=== PATIENT | male | born 1975 | race Caucasian/White ===

== ENCOUNTER 2016-07-24 13:18 | Inpatient (IN) | payer MEDICAID, OTHER ==
--- NOTE | 2016-07-24 14:15 | ED ---
Psych HPI - General Chief Complaint: Psychiatric Symptoms Stated Complaint: Mental Health Time Seen by Provider: 07/24/16 13:56 Source: patient Mode of arrival: ambulatory - History of Present Illness Initial Comments: Patient has a history of bipolar disease and major depression, he was diagnosed in a [facility] a few years ago, unfortunately never been treated after the period he got home with through a divorce him and his of 10 years been for about a month now and he is having a really hard time, there were children together. Now he is concerned about suicidal ideation crossing his mind he has a history of self-harm in the past and also worried about not trusting himself he said he could harm other people as well. Denies any medical complaints related systems negative otherwise - Related Data Home Medications Medication Instructions Recorded Confirmed HYDROcodone/APAP 10-325MG [[place] 1 tab PO TID PRN 07/24/16 07/24/16 10-325] Allergies Allergy/AdvReac Type Severity Reaction Status Date / Time tramadol AdvReac GETS ANGRY Verified 07/24/16 13:52 Review of Systems ROS Statement: Those systems with pertinent positive or pertinent negative responses have been documented in the HPI. ROS Other: All systems not noted in ROS Statement are negative. Past Medical History Additional Past Medical History / Comment(s): bipolar depression chronic back pain 2 herniated disks History of Any Multi-Drug Resistant Organisms: None Reported Past Surgical History: Orthopedic Surgery Additional Past Surgical History / Comment(s): shoulder knee Past Psychological History: Bipolar, Depression Smoking Status: Current every day smoker Past Alcohol Use History: Occasional Past Drug Use History: None Reported General Exam - General Exam Comments Initial Comments: General: The patient is awake and alert, in no distress, and does not appear acutely ill. Skin: Skin is warm and dry and no rashes or lesions are noted. Eye: Pupils are equal, round and reactive to light, extra-ocular movements are intact; there is normal conjunctiva bilaterally. Ears, nose, mouth and throat: There are moist mucous membranes and no oral lesions. Neck: The neck is supple, there is no tenderness or JVD. Cardiovascular: There is a regular rate and rhythm. No murmur, rub or gallop is appreciated. Respiratory: To auscultation bilateral, no wheezing no rhonchi no distress respiratory mendoza noticed Gastrointestinal: Soft, non-distended, non-tender abdomen without masses or organomegaly noted. There is no rebound or guarding present. Bowel sounds are unremarkable. Back: There is no tenderness to palpation in the midline. There is no obvious deformity. Musculoskeletal: Normal ROM, no tenderness, There is no pedal edema. There is no calf tenderness or swelling. No cords were appreciated. Neurological: CN II-XII intact, Cranial nerves III through XII are intact. There are no obvious motor or sensory deficits. Coordination appears grossly intact. Speech is normal. Psychiatric: Cooperative, seems depressed and admits to suicidal ideation and stated that he has been thinking about harming other people as well has a history of self-harm in the past. Limitations: no limitations Course Vital Signs 07/24/16 13:30 Temperature 98.2 F Pulse Rate 81 Respiratory 16 Rate Blood Pressure 140/87 O2 Sat by Pulse 97 Oximetry Discussed with the department of psychiatry recommended considering his past psych history in the past personal history and recent divorce my recommended that he BE admitted for inpatient eval and DayQuil Medical Decision Making - Lab Data Lab Results 07/24/16 Range/Units 14:11 Urine Opiates Screen Not Detected (NotDetected) Ur Oxycodone Screen Not Detected (NotDetected) Urine Methadone Screen Not Detected (NotDetected) Ur Propoxyphene Screen Not Detected (NotDetected) Ur Barbiturates Screen Not Detected (NotDetected) U Tricyclic Antidepress Not Detected (NotDetected) Ur Phencyclidine Scrn Not Detected (NotDetected) Ur Amphetamines Screen Not Detected (NotDetected) U Methamphetamines Scrn Not Detected (NotDetected) U Benzodiazepines Scrn Not Detected (NotDetected) Urine Cocaine Screen Not Detected (NotDetected) U Marijuana (THC) Screen Not Detected (NotDetected) Disposition Clinical Impression: Suicidal ideation, Major depression, Bipolar disorder Disposition: TRANSFER TO PSYCH HOSP/UNIT Condition: Good Referrals: Quentin Thakkar DO [Primary Care Provider] - 1-2 days
[2016-07-24] MEDS ORDERED: NICOTINE 21MG/24HR PATCH TRANSDERM STA (17:18)
[2016-07-24] MEDS ORDERED: MAG HYDROX/AL HYDROX/SIMETH 30 ML CUP PO PRN (18:23)
[2016-07-24] MEDS ORDERED: ZIPRASIDONE 20 MG VIAL IM PRN (18:23)
[2016-07-24] MEDS ORDERED: MAGNESIUM HYDROXIDE 2,400 MG/10 ML CUP PO PRN (18:23)
[2016-07-24] MEDS ORDERED: ACETAMINOPHEN TAB 325 MG TAB PO PRN (18:23)
[2016-07-24] MEDS ORDERED: LORazepam 1 MG TAB PO PRN (18:28)
[2016-07-24] MEDS ORDERED: LORazepam 2 MG/ML SYRINGE IM PRN (18:28)
[2016-07-24] MEDS: HYDROcodone/APAP 5-325MG 1 EACH TAB PO PRN (21:20)
[2016-07-25 09:25] LABS: Basophils # (A) 0.1 k/uL (0-0.2); Basophils % (A) 1 %; CH 32.5; CHCM 34.4; Eosinophils # (A) 0.2 k/uL (0-0.7); Eosinophils % (A) 2 %; HCT 47.1 % (39.0-53.0); HDW 2.38; HGB 15.9 gm/dL (13.0-17.5); Luc # (Auto) 0.22; Luc % (Auto) 2; Lymphocytes # (A) 3.9 k/uL (1.0-4.8); Lymphocytes % (A) 34 %; MCH 32.1 pg (25.0-35.0); MCHC 33.9 g/dL (31.0-37.0); MCV 94.8 fL (80.0-100.0); Monocytes # (A) 0.4 k/uL (0-1.0); Monocytes % (A) 3 %; Neutrophils # (A) 6.6 k/uL (1.3-7.7); Neutrophils % (A) 59 %; RBC 4.97 m/uL (4.30-5.90); RDW 12.7 % (11.5-15.5); WBC 11.3 k/uL (3.8-10.6); WBC (Perox) 11.35
[2016-07-25 09:29] LABS: ALT 33 U/L (21-72); AST 24 U/L (17-59); Alkaline Phosphatase 58 U/L (38-126); Anion Gap 11 mmol/L; Bilirubin, Delta 0.3 mg/dL (0.0-0.2); Blood Urea Nitrogen 13 mg/dL (9-20); Calcium 9.7 mg/dL (8.4-10.2); Carbon Dioxide 25 mmol/L (22-30); Chloride 104 mmol/L (98-107); Glucose 131 mg/dL (74-99); Non-African American GFR(MDRD) >60 (>60 ml/min/1.73 sqM); Potassium 4.1 mmol/L (3.5-5.1); Sodium 140 mmol/L (137-145); Total Bilirubin 1.1 mg/dL (0.2-1.3); Total Protein 7.6 g/dL (6.3-8.2)
[2016-07-25] MEDS: NICOTINE 21MG/24HR PATCH TRANSDERM SCH (09:39)
[2016-07-25] MEDS: HYDROcodone/APAP 5-325MG 1 EACH TAB PO PRN ×2 (09:40→16:37)
[2016-07-25 09:49] VITALS: BMI 40.8
[2016-07-25 10:10] LABS: Amorphous Sediment,Urine Many /hpf; Appearance,Urine Turbid (Clear); Bilirubin,Urine Negative (Negative); Glucose,Urine (UA) Negative (Negative); Ketones,Urine Negative (Negative); Leukocyte Esterase,Urine Negative (Negative); Mucus,Urine Occasional /hpf; Nitrite,Urine Negative (Negative); PH, Urine 5.5 (5.0-8.0); Particle Count 30918; Protein,Urine Negative (Negative); UA Billing (MACRO vs. MICRO) MICRO; Urobilinogen,Urine <2.0 mg/dL (<2.0)
[2016-07-25] MEDS ORDERED: ALBUTEROL INHALER 60 PUFF/8 GM INHALER INHALATION PRN (11:30)
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
[2016-07-26 06:44] VITALS: BP 107/57; PULSE 65; RESP 18; TEMP 97.7
[2016-07-26] MEDS: NICOTINE 21MG/24HR PATCH TRANSDERM SCH (09:30)
[2016-07-26] MEDS: HYDROcodone/APAP 5-325MG 1 EACH TAB PO PRN (09:31)
--- NOTE | 2016-07-26 13:56 | P.DS ---
Providers Date of admission: 07/24/16 17:57 Attending physician: Dominguez Buckley MD Consults: 07/24/16 18:23 Consult Physician Routine Consulting Provider: Leah May Consult Reason/Comments: H & P and medical care Do you want consulting provider notified?: Yes Primary care physician: Quentin Amin Bodega - Discharge Diagnosis(es) (1) Adjustment disorder with mixed disturbance of emotions and conduct Status: Resolved Priority: Medium (2) Suicidal ideation Status: Acute Priority: Medium Hospital Course: Mr. Knapp is a 40-year-old male who presented to the psychiatric unit voluntarily with complaints of depression and suicidal ideation. According to the EPS nurse he presented with complaints of having suicidal ideation and feeling depressed because he is from his . He has reportedly been sending pictures over the Internet to his depicting hanging and telling his he is "going to do it". According to the EPS nurse his is concerned over his alcohol use. He drinks "heavily" on a daily basis. He stated that he has not slept for more than "1 or 2 hours" over the last several weeks. "I had a good night sleep last night for the first time and feeling much better." He minimized his suicidal ideation and denied that he sent his pictures over the Internet depicting hanging. He denied that he communicated to his that he is "going to do it". He alleged that they've been for one month because they've been arguing frequently. He was evasive about the reasons for the medical discord. He talked about feeling jealous that his was taking care of her sister's 2 teenage children. He denied the use of alcohol and alleged that he has not drank in "several years". He denied feeling depressed or having thoughts of suicide. He denied symptoms of depression with the exception of insomnia. He denied feeling anxious or restless. He denied obsessions or compulsions. He denied psychotic symptoms such as auditory or visual hallucinations, thought insertion, thought broadcasting or thought control. He denied prior psychiatric hospitalizations. He received outpatient services through [facility] in "2006 or 2007" for depression after his [facility] from [facility]. He met with a counselor and the psychiatrist prescribed an antidepressant medication. He denied history of elevated mood or sustained irritability consistent with chalino or hypomania. He alleged that he has not used alcohol "several years ... I used to drink but I don't anymore. I saw what alcohol did to my brother. His liver and kidneys are failing because of the alcohol." He denied use of drugs to get high, help him sleep or change his mood. Specifically he denied use of marijuana, cocaine , crack cocaine, methamphetamine, heroin, or opioid pain medications (except for those prescribed by his physician), etc. His urine drug screen was negative for drugs of abuse and his BAT on presentation to the ER was 0 We admitted him to the psychiatric unit under the care of this field underwriter. We provided a biopsychosocial assessment. The environmental consultant solar sales specialist completed the initial history and physical exam. The environmental consultant diagnosed tobacco use and dependence, history of asthma or COPD, back pain due to herniated disks and obstructive sleep apnea compliant with CPAP. On the day following admission he denied feeling depressed or having thoughts of or suicide. He attributed his presentation to poor sleep and the separation from his . The social insurance adviser spoke with his sister who confirmed that he was not heavily using alcohol. He participated in therapeutic groups and activities. He had no signs and symptoms that would necessitate the prescription of psychotropic medication. He repeatedly denied suicidal ideation, plan or intent. He was receptive to a referral for individual counseling. Patient Condition at Discharge: Good Plan - Discharge Summary New Discharge Prescriptions: Nicotine 21Mg/24Hr Patch [Habitrol] 1 patch TRANSDERM DAILY #14 patch Discharge Medication List HYDROcodone/APAP 10-325MG [[place] 10-325] 1 tab PO TID PRN 07/24/16 [History] Albuterol Inhaler [Ventolin Hfa Inhaler] 2 puff INHALATION RT-QID PRN #0 puff [Rx] Nicotine 21Mg/24Hr Patch [Habitrol] 1 patch TRANSDERM DAILY #14 patch 07/26/16 [ Rx] Follow up Appointment(s)/Referral(s): [facility]Outside[facility] - 07/31/16 2:00 pm (Anitha Calvin) Quentin Thakkar, [Primary Care Provider] - 1-2 days Patient Instructions/Handouts: How to Stop Smoking (DC), Bipolar Disorder (DC) , Depression (DC), Suicide Prevention for Adults (DC) Activity/Diet/Wound Care/Special Instructions: No alcohol or street drugs. Notify the crisis line or your care provider if symptoms worsen. Crisis line no. . Regular diet. Activity as tolerated. Discharge Disposition: HOME SELF-CARE
== END 2016-07-26 13:30 | disposition home or self-care (01) | DRG 882 ==
LOC: EC 13:18 → 3MHU 17:57
PROVIDERS: ADMIT Psychiatry & Neurology Psychiatry; ATTEND Psychiatry & Neurology Psychiatry
DX: F43.25 Adjustment disorder with mixed disturbance of emotions and conduct (principal); R45.851 Suicidal ideations; J44.9 Chronic obstructive pulmonary disease, unspecified; G47.33 Obstructive sleep apnea (adult) (pediatric); J45.909 Unspecified asthma, uncomplicated; F17.200 Nicotine dependence, unspecified, uncomplicated; F31.9 Bipolar disorder, unspecified; G47.00 Insomnia, unspecified; Z91.5 Personal history of self-harm; Z88.5 Allergy status to narcotic agent; G89.29 Other chronic pain; M54.5 Low back pain; Z63.5 Disruption of family by separation and divorce; Z81.1 Family history of alcohol abuse and dependence
CPT/HCPCS: 80053; 80306; 81001; 82075; 82248; 84443; 85025; 94640; 99285

== ENCOUNTER 2016-08-08 17:27 | Inpatient (IN) | payer MEDICAID, OTHER ==
[2016-08-08] MEDS ORDERED: SODIUM CHLORIDE 0.9% 1,000 ML IV STA (17:43)
[2016-08-08] MEDS ORDERED: ACTIVATED CHARCOAL-SORBITOL 50 GM/240 ML BOTTLE PO STA (17:44)
--- NOTE | 2016-08-08 17:47 | ED ---
General Adult HPI - General Source: patient, family, RN notes reviewed Mode of arrival: ambulatory Limitations: no limitations <Salo Ortiz - Last Filed: 08/08/16 20:47> <Salo Bonner - Last Filed: 08/08/16 22:15> - General Chief complaint: Overdose Stated complaint: Overdose Time Seen by Provider: 08/08/16 17:35 - History of Present Illness Initial comments: This is a 40-year-old male who presents to the department with a past history of major depression. Patient has recently from his is become very depressed per patient was recently up in the psychiatric unit this month. Patient today became more depressed and decided he had nothing to live for so started taking a bunch of Flexeril he is not sure how many he took however the thinks he possibly took upwards of 20. Patient denies any other drug use patient denies taking any other medicines in excess. Patient denies any alcohol. Patient states he does believe he has nothing to live for because his left him and he is not able to live with her and his kids. Patient denies any physical complaints today. Patient denies headache patient denies numbness weakness. Patient denies any lightheadedness dizziness or near syncopal episode. Patient denies chest pain patient denies any palpitations difficulty breathing shortness of breath per patient denies abdominal pain patient denies nausea vomiting diarrhea. (Salo Ortiz) - Related Data Home Medications Medication Instructions Recorded Confirmed HYDROcodone/APAP 10-325MG [[place] 1 tab PO TID PRN 07/24/16 08/08/16 10-325] Previous Rx's Medication Instructions Recorded Albuterol Inhaler [Ventolin Hfa 2 puff INHALATION RT-QID PRN #0 07/26/16 Inhaler] puff Nicotine 21Mg/24Hr Patch [Habitrol] 1 patch TRANSDERM DAILY #14 patch 07/26/16 Allergies Allergy/AdvReac Type Severity Reaction Status Date / Time tramadol AdvReac GETS ANGRY Verified 08/08/16 18:36 Review of Systems ROS Other: All systems not noted in ROS Statement are negative. <Salo Ortiz - Last Filed: 08/08/16 20:47> ROS Other: All systems not noted in ROS Statement are negative. <Salo Bonner - Last Filed: 08/08/16 22:15> ROS Statement: Those systems with pertinent positive or pertinent negative responses have been documented in the HPI. Past Medical History Additional Past Medical History / Comment(s): chronic back pain with 2 herniated disks History of Any Multi-Drug Resistant Organisms: None Reported Past Surgical History: Orthopedic Surgery, Tonsillectomy Additional Past Surgical History / Comment(s): Right rotator cuff repair, left knee arthroscopy with ACL repair. Past Psychological History: Bipolar, Depression Smoking Status: Current every day smoker Past Alcohol Use History: Occasional Additional Past Alcohol Use History / Comment(s): Patient is a smoker of one and a half pack per day for 20 years. He denies any medical marijuana, marijuana, street drug or alcohol use. Past Drug Use History: None Reported - Past Family History Father Additional Family Medical History / Comment(s): Patient has had no contact with his father for 15 years. Mother Additional Family Medical History / Comment(s): Mother is alive at age 75 with dementia. Brother(s) Additional Family Medical History / Comment(s): Patient has 3 brothers and one has cirrhosis of the liver due to alcohol abuse. Patient has 1 sister with no major medical problems. Daughter(s) Additional Family Medical History / Comment(s): Patient has 2 sons and 2 daughters with no major medical problems. <Salo Ortiz - Last Filed: 08/08/16 20:47> General Exam Limitations: no limitations <Salo Ortiz - Last Filed: 08/08/16 20:47> General appearance: alert, in no apparent distress, in distress Head exam: Present: atraumatic, normocephalic, normal inspection Eye exam: Present: normal appearance, PERRL, EOMI. Absent: scleral icterus, conjunctival injection, periorbital swelling ENT exam: Present: normal exam, mucous membranes moist Neck exam: Present: normal inspection. Absent: tenderness, meningismus, lymphadenopathy Respiratory exam: Present: normal lung sounds bilaterally. Absent: respiratory distress, wheezes, rales, rhonchi, stridor Cardiovascular Exam: Present: regular rate, normal rhythm, normal heart sounds. Absent: systolic murmur, diastolic murmur, rubs, gallop, clicks GI/Abdominal exam: Present: soft, normal bowel sounds. Absent: distended, tenderness, guarding, rebound, rigid Extremities exam: Present: normal inspection, full ROM, normal capillary refill. Absent: tenderness, pedal edema, joint swelling, calf tenderness Back exam: Present: normal inspection Neurological exam: Present: alert, oriented X3, CN II-XII intact Psychiatric exam: Present: normal affect, normal mood Skin exam: Present: warm, dry, intact, normal color. Absent: rash <Salo Bonner - Last Filed: 08/08/16 22:15> - General Exam Comments Initial Comments: GENERAL: Patient is well-developed and well-nourished. Patient is nontoxic and well- hydrated and is in no acute distress. Patient is a little bit tired but is able to answer all questions accurately ENT: Neck is soft and supple. No significant lymphadenopathy is noted. Oropharynx is clear. Moist mucous membranes. Neck has full range of motion without eliciting any pain. EYES: The sclera were anicteric and conjunctiva were pink and moist. Extraocular movements were intact and pupils were equal round and reactive to light. Eyelids were unremarkable. PULMONARY: Unlabored respirations. Good breath sounds bilaterally. No audible rales rhonchi or wheezing was noted. CARDIOVASCULAR: There is a regular rate and rhythm without any murmurs gallops or rubs. ABDOMEN: Soft and nontender with normal bowel sounds. No palpable organomegaly was noted. There is no palpable pulsatile mass. SKIN: Skin is clear with no lesions or rashes and otherwise unremarkable. NEUROLOGIC: Patient is alert and oriented x3. Cranial nerves II through XII are grossly intact. Motor and sensory are also intact. Normal speech, volume and content. Symmetrical smile. MUSCULOSKELETAL: Normal extremities with adequate strength and full range of motion. No lower extremity swelling or edema. No calf tenderness. LYMPHATICS: No significant lymphadenopathy is noted PSYCHIATRIC: Normal psychiatric evaluation. Normal interpersonal interactions appears functionally intact in deals appropriately with others. No signs of depression. No signs of anxiety. (Salo Ortiz) Course <Salo Ortiz - Last Filed: 08/08/16 20:47> <Salo Bonner - Last Filed: 08/08/16 22:15> Vital Signs 08/08/16 08/08/16 08/08/16 17:36 18:32 18:41 Temperature 97.6 F Pulse Rate 86 Pulse Rate [ [facility] ] Respiratory 16 16 Rate Blood Pressure 147/81 O2 Sat by Pulse 99 Oximetry 08/08/16 08/08/16 20:45 21:47 Temperature 97.7 F 97.9 F Pulse Rate 68 71 Pulse Rate [ [facility] ] Respiratory 14 16 Rate Blood Pressure 120/71 117/69 O2 Sat by Pulse 98 95 Oximetry - Reevaluation(s) Reevaluation #1: 08/08/16 22:15 Medically clear for psychiatric evaluation (Salo Bonner) Medical Decision Making - Lab Data Result diagrams: 08/08/16 18:32 08/08/16 18:32 <Salo Ortiz - Last Filed: 08/08/16 20:47> - Lab Data Result diagrams: 08/08/16 18:32 08/08/16 18:32 <Salo Bonner - Last Filed: 08/08/16 22:15> - Medical Decision Making EKG shows normal sinus rhythm 70 bpm ME interval is 168 QRSs 80 QT interval 366 QTC is 395. Patient's EKG shows no ST segment elevation or depression or T wave abnormalities are noted Repeat EKG was done because the Flexeril overdose it showed a normal sinus rhythm at 60 bpm. It was 172 QRS is 82 QT interval 378 QTC is 41. Patient's EKG shows no ST segment elevation or depression or T-wave abdomen is noted. Dr. Bonner will be taking over the care of this patient at 9 PM (Salo Ortiz) [facility] ER for evaluation, patient was brought in for evaluation overdose, secondary to Flexeril, patient's awake and alert, vital signs are normal, patient remains suicidal and will be admitted for psychiatric evaluation and treatment (Salo Bonner) - Lab Data Lab Results 08/08/16 08/08/16 08/08/16 Range/Units 18:32 18:32 18:33 WBC 11.0 H (3.8-10.6) k/uL RBC 4.48 (4.30-5.90) m/uL Hgb 14.5 (13.0-17.5) gm/dL Hct 41.8 (39.0-53.0) % MCV 93.3 (80.0-100.0) fL MCH 32.4 (25.0-35.0) pg MCHC 34.7 (31.0-37.0) g/dL RDW 12.7 (11.5-15.5) % Plt Count 290 (150-450) k/uL Neutrophils % 56 % Lymphocytes % 35 % Monocytes % 5 % Eosinophils % 1 % Basophils % 1 % Neutrophils # 6.2 (1.3-7.7) k/uL Lymphocytes # 3.9 (1.0-4.8) k/uL Monocytes # 0.5 (0-1.0) k/uL Eosinophils # 0.2 (0-0.7) k/uL Basophils # 0.1 (0-0.2) k/uL Sodium 141 (137-145) mmol/L Potassium 4.0 (3.5-5.1) mmol/L Chloride 107 (98-107) mmol/L Carbon Dioxide 25 (22-30) mmol/L Anion Gap 9 mmol/L BUN 13 (9-20) mg/dL Creatinine 1.08 (0.66-1.25) mg/dL Est GFR (MDRD) Af Amer >60 (>60 ml/min/1.73 sqM) Est GFR (MDRD) Non-Af >60 (>60 ml/min/1.73 sqM) Glucose 102 H (74-99) mg/dL Calcium 9.1 (8.4-10.2) mg/dL Total Bilirubin 0.6 (0.2-1.3) mg/dL AST 21 (17-59) U/L ALT 44 (21-72) U/L Alkaline Phosphatase 47 (38-126) U/L Total Protein 6.7 (6.3-8.2) g/dL Albumin 3.9 (3.5-5.0) g/dL Salicylates <1.0 mg/dL Urine Opiates Screen Not Detected (NotDetected) Ur Oxycodone Screen Not Detected (NotDetected) Urine Methadone Screen Not Detected (NotDetected) Ur Propoxyphene Screen Not Detected (NotDetected) Acetaminophen <10.0 ug/mL Ur Barbiturates Screen Not Detected (NotDetected) U Tricyclic Antidepress Not Detected (NotDetected) Ur Phencyclidine Scrn Not Detected (NotDetected) Ur Amphetamines Screen Not Detected (NotDetected) U Methamphetamines Scrn Not Detected (NotDetected) U Benzodiazepines Scrn Not Detected (NotDetected) Urine Cocaine Screen Not Detected (NotDetected) U Marijuana (THC) Screen Not Detected (NotDetected) Serum Alcohol <10 mg/dL Disposition <Salo Ortiz - Last Filed: 08/08/16 20:47> <Salo Bonner - Last Filed: 08/08/16 22:15> Clinical Impression: Suicidal ideation, Major depression Disposition: TRANSFER TO PSYCH HOSP/UNIT Condition: Fair
[2016-08-08 18:48] LABS: Basophils # (A) 0.1 k/uL (0-0.2); Basophils % (A) 1 %; CH 32.6; Eosinophils # (A) 0.2 k/uL (0-0.7); Eosinophils % (A) 1 %; HCT 41.8 % (39.0-53.0); HDW 2.44; HGB 14.5 gm/dL (13.0-17.5); Luc # (Auto) 0.21; Luc % (Auto) 2; Lymphocytes # (A) 3.9 k/uL (1.0-4.8); Lymphocytes % (A) 35 %; MCH 32.4 pg (25.0-35.0); MCHC 34.7 g/dL (31.0-37.0); MCV 93.3 fL (80.0-100.0); Mean Platelet Volume 7.1; Monocytes # (A) 0.5 k/uL (0-1.0); Monocytes % (A) 5 %; Neutrophils # (A) 6.2 k/uL (1.3-7.7); Neutrophils % (A) 56 %; RBC 4.48 m/uL (4.30-5.90); RDW 12.7 % (11.5-15.5); WBC (Perox) 11.33
[2016-08-08 19:02] LABS: ALT 44 U/L (21-72); AST 21 U/L (17-59); Acetaminophen <10.0 ug/mL; Alcohol <10 mg/dL; Alkaline Phosphatase 47 U/L (38-126); Anion Gap 9 mmol/L; Blood Urea Nitrogen 13 mg/dL (9-20); Calcium 9.1 mg/dL (8.4-10.2); Carbon Dioxide 25 mmol/L (22-30); Chloride 107 mmol/L (98-107); Glucose 102 mg/dL (74-99); Non-African American GFR(MDRD) >60 (>60 ml/min/1.73 sqM); Salicylate <1.0 mg/dL; Sodium 141 mmol/L (137-145); Total Bilirubin 0.6 mg/dL (0.2-1.3); Total Protein 6.7 g/dL (6.3-8.2)
[2016-08-08] MEDS ORDERED: NICOTINE 21MG/24HR PATCH TRANSDERM STA (20:46)
[2016-08-08] MEDS ORDERED: MAG HYDROX/AL HYDROX/SIMETH 30 ML CUP PO PRN (22:49)
[2016-08-08] MEDS ORDERED: ZIPRASIDONE 20 MG VIAL IM PRN (22:49)
[2016-08-08] MEDS ORDERED: MAGNESIUM HYDROXIDE 2,400 MG/10 ML CUP PO PRN (22:49)
[2016-08-08] MEDS ORDERED: LORazepam 2 MG/ML SYRINGE IM PRN (22:53)
[2016-08-09] MEDS: ALBUTEROL INHALER 60 PUFF/8 GM INHALER INHALATION PRN ×4 (07:48→21:11)
[2016-08-09] MEDS: NICOTINE 21MG/24HR PATCH TRANSDERM SCH (08:38)
[2016-08-09] MEDS: ESCITALOPRAM 10 MG TAB PO SCH (09:43)
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
--- NOTE | 2016-08-09 14:48 | P.CONS ---
History of Present Illness - Reason for Consult Consult date: 08/09/16 medical management - History of Present Illness This is a 40-year-old male. His primary care physician is Dr. Thakkar. He gives history of asthma, COPD, chronic back pain with 2 herniated disc, obstructive sleep apnea with CPAP, bipolar, depression, tobacco use and dependence. Patient gives history that he split with his 1-1/2 months ago and was recently admitted to the mental health unit 2 weeks ago. He states he was discharged but did not go home on any new medications. He states he and his are trying to work things out and they are currently living together. [facility]. Patient states he took 20 Flexeril which was an old prescription of his for back pain and his came home and found him and she ended up bringing him into [facility] for evaluation. He states he has been out of it yesterday and today. Urine drug screen was negative. Salicylate level, acetaminophen and serum alcohol levels all negative. Patient has been admitted to the mental health unit. Review of Systems All systems: negative Constitutional: Denies chills, Denies fever Eyes: denies blurred vision, denies pain Ears, nose, mouth and throat: Denies headache, Denies sore throat Cardiovascular: Denies chest pain, Denies shortness of breath Respiratory: Denies cough Gastrointestinal: Denies abdominal pain, Denies diarrhea, Denies nausea, Denies vomiting Musculoskeletal: Denies myalgias Integumentary: Denies pruritus, Denies rash Neurological: Denies numbness, Denies weakness Psychiatric: Reports depression, Reports hopelessness, Reports suicidal ideation , Denies anxiety Endocrine: Denies fatigue, Denies weight change Past Medical History Additional Past Medical History / Comment(s): chronic back pain with 2 herniated disks History of Any Multi-Drug Resistant Organisms: None Reported Past Surgical History: Orthopedic Surgery, Tonsillectomy Additional Past Surgical History / Comment(s): Right rotator cuff repair, left knee arthroscopy with ACL repair. Past Psychological History: Bipolar, Depression Smoking Status: Current every day smoker Past Alcohol Use History: Occasional Additional Past Alcohol Use History / Comment(s): Patient is a smoker of one and a half pack per day for 20 years. He denies any medical marijuana, marijuana, street drug or alcohol use. Past Drug Use History: None Reported - Past Family History Father Additional Family Medical History / Comment(s): Patient has had no contact with his father for 15 years. Mother Additional Family Medical History / Comment(s): Mother is alive at age 75 with dementia. Brother(s) Additional Family Medical History / Comment(s): Patient has 3 brothers and one has cirrhosis of the liver due to alcohol abuse. Patient has 1 sister with no major medical problems. Daughter(s) Additional Family Medical History / Comment(s): Patient has 2 sons and 2 daughters with no major medical problems. Medications and Allergies Home Medications Medication Instructions Recorded Confirmed Type HYDROcodone/APAP 10-325MG [[place] 1 tab PO TID PRN 07/24/16 08/08/16 History 10-325] Allergies Allergy/AdvReac Type Severity Reaction Status Date / Time tramadol AdvReac GETS ANGRY Verified 08/08/16 18:36 Physical Exam Vitals: Vital Signs Temp Pulse Pulse Resp BP BP Pulse Ox 08/09/16 06:29 97.5 F L 69 20 136/77 08/08/16 22:27 98 F 71 18 118/84 08/08/16 22:23 97.5 F L 65 16 115/71 98 Intake and Output 08/08/16 08/09/16 08/09/16 22:59 06:59 14:59 Other: Weight 128.378 kg Gen: This is a morbidly obese 40-year-old male. He is cooperative and appears to be in no acute distress. HEENT: Head is atraumatic, normocephalic. Pupils equal, round. Sclerae is anicteric. NECK: Supple. No JVD. No lymphadenopathy. No thyromegaly. LUNGS: Clear to auscultation. No wheezes or rhonchi. No intercostal retractions. HEART: Regular rate and rhythm. No murmur. ABDOMEN: Soft. Bowel sounds are present. No masses. No tenderness. EXTREMITIES: No pedal edema. No calf tenderness. NEUROLOGICAL: Patient is awake, alert and oriented x3. Cranial nerves 2 through 12 are grossly intact. Results CBC & Chem 7: 08/08/16 18:32 08/08/16 18:32 Assessment and Plan Plan: 1. Depression. Patient admitted to the mental health unit. Continue current plan of care. 2. Tobacco use and dependence. Continue nicotine patch. 3. History of asthma or COPD per patient. Continue Ventolin inhaler as needed. 4. Chronic back pain with 2 herniated disc. Continue [place] as needed or Tylenol. 5. Obstructive sleep apnea compliant with CPAP. Impression and plan of care have been directed as dictated by the signing physician. Becky Arreola nurse practitioner acting as scribe for signing physician. Time with Patient: Greater than 30
[2016-08-09] MEDS: LORazepam 1 MG TAB PO PRN (22:37)
[2016-08-10] MEDS: ALBUTEROL INHALER 60 PUFF/8 GM INHALER INHALATION PRN ×3 (07:34→20:57)
[2016-08-10] MEDS: ESCITALOPRAM 10 MG TAB PO SCH (09:07)
[2016-08-10] MEDS: NICOTINE 21MG/24HR PATCH TRANSDERM SCH (09:07)
--- NOTE | 2016-08-10 13:46 | P.PN ---
Progress Note - Text SUBJECTIVE: I reviewed the medical record, interviewed Mr. Knapp and discuss his treatment and treatment plan during team meeting. He denied side effects to the initial doses of escitalopram. He requests to be discharged maintaining that he would "be safe" when he returns to her sister's home. Several times during interview he stated that he is to get back to work. He talked about the overdose of Flexeril as a "mistake". He alleged that he was "not thinking properly ... I have a lot to live for. Even if we get I still have my children to think of." We talked about the problems in his marriage and he attributed the marital problems to his focus on work over maintaining the relationship with his . He talked about working 16 hour days for "couple years". When he returned home he was "too tired" to spend time with his or his children. He is hoping to salvage the marriage but believes that he could accept a divorce. "I been before. I can do it again." He describes feeling depressed but denied thoughts of or suicide. OBJECTIVE: He presented as a casually groomed 40-year-old male who was pleasant on approach. He maintained eye contact and attended the interview. He had multiple monochromic tattoos on his arms but no prominent physical abnormalities. He had a depressed facial expression. He was alert and oriented to person, place and time. He showed slight psychomotor retardation but no abnormal involuntary movements. His rate was spontaneous with slight decrease in mood and volume. His affect was depressed and not reactive. He denied suicidal ideation or wishes. He denied homicidal ideation. He denied depressive cognitions such as hopelessness, helplessness and worthlessness. He didn't express obsessions, ruminations, phobias or ideas of reference. His thinking was abstract and associations were coherent and logical. He denied hallucinations did not appear to be responding to internal stimuli. He attended one therapeutic group yesterday. ASSESSMENT: He continues to have symptoms of depression but is denying suicidal ideation, plan or intent. Overall, he appears moderately mentally ill and minimally improve from admission. PLAN: Continue inpatient psychiatric hospitalization due to the severity of depression and readmission for depression with the suicide attempt. Continue escitalopram 20 mg daily and titrated according to clinical response and tolerance. Encourage participation in therapeutic groups and activities. Evaluate clinical status and response to treatment on a daily basis.
[2016-08-10] MEDS: ACETAMINOPHEN TAB 325 MG TAB PO PRN ×2 (16:58→21:10)
[2016-08-10] MEDS: LORazepam 1 MG TAB PO PRN (21:09)
[2016-08-11] MEDS: NICOTINE 21MG/24HR PATCH TRANSDERM SCH (08:29)
[2016-08-11] MEDS: ESCITALOPRAM 10 MG TAB PO SCH (08:30)
[2016-08-11] MEDS: ALBUTEROL INHALER 60 PUFF/8 GM INHALER INHALATION PRN ×4 (09:01→20:49)
[2016-08-11] MEDS: LORazepam 1 MG TAB PO PRN ×2 (14:56→23:00)
--- NOTE | 2016-08-11 16:10 | P.PN ---
Progress Note - Text SUBJECTIVE: I reviewed the medical record, interviewed Mr. Knapp and discussed his treatment and treatment plan during team meeting. He denied feeling depressed or having thoughts of or suicide. On a 10 point Likert scale he rated his depression as a "0". He plans to return to his sister's house and his will arrange visitation of the children at his sister's house. He does not want his involved in his treatment and declined my offer to have her involved in the family meeting. He described a laissez-faire attitude about marriage. He talked about being anxious about the upcoming child support hearing regarding the 14-year-old from his prior marriage. OBJECTIVE: He presented as a casually groomed 40-year-old male who was pleasant on approach. He maintained eye contact and attended the interview. He had a blunted facial expression. He was alert and oriented to person, place and time. He showed slight psychomotor retardation but no abnormal involuntary movements. His speech was spontaneous with normal rate, rhythm and volume. His affect was anxious and slightly depressed. He denied suicidal ideation or wishes. He denied homicidal ideation. He denied depressive cognitions such as hopelessness, helplessness and worthlessness. He didn't express obsessions, ruminations, phobias or ideas of reference. His thinking was abstract and associations were coherent and logical. He denied hallucinations did not appear to be responding to internal stimuli. He attended therapeutic groups. Therapist reported that he is attentive but does not contribute. ASSESSMENT: The patient is denying symptoms of depression or thoughts of or suicide. The overall change in his mood is dramatic and out of proportion to the usual response to antidepressant medications. I suspect that he is minimizing his distress. Overall, he appears moderately mentally ill and much improved from admission. PLAN: Continue inpatient psychiatric hospitalization due to the readmission for depression with the suicide attempt. Continue escitalopram 20 mg daily and titrated according to clinical response and tolerance. Encourage participation in therapeutic groups and activities. Evaluate clinical status and response to treatment on a daily basis.
[2016-08-12 06:47] VITALS: PULSE 70
[2016-08-12] MEDS: NICOTINE 21MG/24HR PATCH TRANSDERM SCH (08:38)
[2016-08-12] MEDS: ESCITALOPRAM 10 MG TAB PO SCH (08:39)
[2016-08-12] MEDS: LORazepam 1 MG TAB PO PRN ×2 (08:40→20:53)
[2016-08-12] MEDS: ALBUTEROL INHALER 60 PUFF/8 GM INHALER INHALATION PRN ×3 (09:16→21:45)
--- NOTE | 2016-08-12 17:39 | P.PN ---
Progress Note - Text SUBJECTIVE: I reviewed the medical record and interviewed Mr. Knapp. He denied feeling depressed or having thoughts of or suicide. He stated that he is less anxious, less distressed and does not perseverate about his marital problems as he did prior to admission He denied side effects to to Lexapro. He asked if he could be discharged tomorrow after family meeting. textile worker arranged a meeting with his sister. He again declined an offer to speak with his . OBJECTIVE: He presented as a casually groomed 40-year-old male who was pleasant on approach. He maintained eye contact and attended the interview. He had a blunted but bright facial expression. He was alert and oriented to person, place and time. He showed no abnormality of psychomotor activity and no abnormal involuntary movements. His speech was spontaneous with normal rate, rhythm and volume. His affect was blunted but bright. He denied suicidal ideation or wishes. He denied homicidal ideation. He denied depressive cognitions such as hopelessness, helplessness and worthlessness. He didn't express obsessions, ruminations, phobias or ideas of reference. His thinking was abstract and associations were coherent and logical. He denied hallucinations did not appear to be responding to internal stimuli. He attended one therapeutic groups today. ASSESSMENT: He appears moderately mentally ill and much improved from admission. PLAN: Continue inpatient psychiatric hospitalization. Continue escitalopram 20 mg daily and titrated according to clinical response and tolerance. Encourage participation in therapeutic groups and activities. Evaluate clinical status and response to treatment on a daily basis.
[2016-08-13 06:46] VITALS: BP 126/76; RESP 16; TEMP 97.7
[2016-08-13] MEDS: ESCITALOPRAM 10 MG TAB PO SCH (08:46)
[2016-08-13] MEDS: NICOTINE 21MG/24HR PATCH TRANSDERM SCH (08:46)
[2016-08-13] MEDS: LORazepam 1 MG TAB PO PRN (08:47)
[2016-08-13] MEDS: ALBUTEROL INHALER 60 PUFF/8 GM INHALER INHALATION PRN (10:51)
--- NOTE | 2016-08-13 11:55 | P.DS ---
Providers Date of admission: 08/08/16 22:11 Attending physician: Dominguez Buckley MD Consults: 08/08/16 22:49 Consult Physician Routine Consulting Provider: Dominguez Mckenzie Consult Reason/Comments: H and P, eval and tx, r/o metabolic disorder Do you want consulting provider notified?: Yes, Notify in am Primary care physician: Quentin Thakkar - Discharge Diagnosis(es) (1) Suicide attempt by drug ingestion Current Visit: Yes Status: Resolved Priority: High (2) Marital conflict involving estrangement Current Visit: Yes Status: Chronic Priority: High (3) Major depression Current Visit: Yes Status: Acute Priority: High Hospital Course: Mr. Knapp is a 40-year-old male readmitted to the [facility] Center following a suicide attempt by overdose of Flexeril. We discharge him from the unit on 07/26/2016 with diagnoses of adjustment disorder with disturbance of mood and conduct. He stated that he was depressed but only to leave the hospital and told us that he was doing better. He lived at his sister's home until 5 days prior to admission. He spent last 5 days with his and children. On the day he was to return back to his sister's home he took approximately 15 tablets of Flexeril with the thought that he would not wake up. He denied that he had planned the overdose and denied that he had thoughts of or suicide prior to the overdose. He impulsively took the medications giving little forethought to the consequences other than wanting to "sleep and not wake up." He kept his initial appointment at [facility]. He perseverated on his marital relationship. He stated several times during interview that they are but "working things out. .... We are going to have marital therapy." He completed the Huntley Depression Inventory. His total score was 29 consistent with moderate to severe symptoms of depression. He described constant sadness. He feels that he is a failure and finds little pleasure in things he used to enjoy. He feels guilty over his past behaviors. He has punishment feelings, self dislike, self criticalness and crying spells. He denied suicidal thoughts or wishes. At times he is restless or agitated that is hard to sit still. He described loss of energy and difficulty concentrating feeling fatigued and difficulty making decisions. He denied psychotic symptoms such as auditory or visual hallucinations, ideas reference, thought insertion, thought broadcasting or thought control. He feels anxious but denied symptoms suggestive of panic attacks. He denied periods of elevated mood or persistent irritability consistent with bipolar illness. He denied use of alcohol or drugs. His BAT on presentation to the ER was 0 and his urine drug screen was negative. He was admitted to this unit from 07/24 to 07/26/2016. He presented to the with complaints of depression and suicidal ideation related to separation from his . He [facility] "[facility]" for depression after his [facility] from [facility]. He met with a counselor and the psychiatrist prescribed an antidepressant medication. He denied history of elevated mood or sustained irritability consistent with chalino or hypomania. We admitted him to the psychiatric unit under the care of this blurb writer. We provided a biopsychosocial assessment. The senior billing consultant shirt operator completed the initial physical exam and medical history. The senior billing consultant diagnosed depression , tobacco use disorder, history of asthma or COPD, chronic back pain with 2 herniated disks and obstructive sleep apnea compliant with CPAP. We placed him on suicide precautions with 15 minute checks. We started Lexapro 10 mg by mouth for the treatment of depression. He participated intermittently in therapeutic groups and activities. He denied suicidal ideation or attempt on presentation to the unit. He regretted his action and attributed to concerns over his marriage is children and possibility of divorce. He acknowledged that his suicide attempt was related to staying with his and children over the extended weekend. He was not psychologically minded and was focused on work and child support throughout much of the hospital stay. He refused to have his involved in his treatment and refused us permission to contact his . The social professionals held the family meeting with his sister. He alleged that he spoke with his and both concur that he will remain his sister's home and his children will visit him at his sister's home. At the time of discharge she denied feeling depressed or having thoughts of or suicide. He is committed to outpatient treatment and [facility] Patient Condition at Discharge: Fair Plan - Discharge Summary New Discharge Prescriptions: Escitalopram [Lexapro] 10 mg PO DAILY 30 Days Discharge Medication List HYDROcodone/APAP 10-325MG [[place] 10-325] 1 tab PO TID PRN 07/24/16 [History] Albuterol Inhaler [Ventolin Hfa Inhaler] 2 puff INHALATION RT-QID PRN #0 puff [Rx] Nicotine 21Mg/24Hr Patch [Habitrol] 1 patch TRANSDERM DAILY #14 patch 07/26/16 [ Rx] Escitalopram [Lexapro] 10 mg PO DAILY 30 Days 08/13/16 [Rx] Follow up Appointment(s)/Referral(s): Quentin Thakkar DO [Primary Care Provider] - 1-2 days Discharge Disposition: HOME SELF-CARE
== END 2016-08-13 13:22 | disposition home or self-care (01) | DRG 885 ==
LOC: EC 17:27 → 3MHU 22:11
PROVIDERS: ADMIT Psychiatry & Neurology Psychiatry; ATTEND Psychiatry & Neurology Psychiatry
DX: F32.89 Other specified depressive episodes (principal); J44.9 Chronic obstructive pulmonary disease, unspecified; F17.200 Nicotine dependence, unspecified, uncomplicated; G47.33 Obstructive sleep apnea (adult) (pediatric); J45.909 Unspecified asthma, uncomplicated; T50.902A Poisoning by unspecified drugs, medicaments and biological substances, intentional self-harm, initial encounter; Z63.0 Problems in relationship with spouse or partner; Z63.8 Other specified problems related to primary support group; M54.89 Other dorsalgia; G89.29 Other chronic pain; Z81.1 Family history of alcohol abuse and dependence; Z88.5 Allergy status to narcotic agent; T48.1X2A Poisoning by skeletal muscle relaxants [neuromuscular blocking agents], intentional self-harm, initial encounter
CPT/HCPCS: 36415; 80053; 80306; 80320; 82075; 83520; 84443; 85025; 93005; 94640; 96360; 96361; 99285

== ENCOUNTER 2020-09-19 15:51 | Observation (INO) | payer OTHER ==
[2020-09-19 16:29] LABS: Basophils # (A) 0.1 k/uL (0-0.2); Basophils % (A) 1 %; Eosinophils # (A) 0.2 k/uL (0-0.7); Eosinophils % (A) 3 %; HCT 43.4 % (39.0-53.0); Lymphocytes # (A) 3.1 k/uL (1.0-4.8); Lymphocytes % (A) 33 %; MCHC 34.5 g/dL (31.0-37.0); MCV 92.6 fL (80.0-100.0); Mean Platelet Volume 6.4; Monocytes # (A) 0.4 k/uL (0-1.0); Monocytes % (A) 4 %; Neutrophils # (A) 5.3 k/uL (1.3-7.7); Neutrophils % (A) 57 %; Platelet Count 278 k/uL (150-450); RBC 4.69 m/uL (4.30-5.90); RDW 12.2 % (11.5-15.5); WBC 9.2 k/uL (3.8-10.6)
[2020-09-19 16:40] LABS: ALT 18 U/L (4-49); AST 21 U/L (17-59); African American GFR (CKD) >90 (>60 ml/min/1.73 sqM); Alkaline Phosphatase 50 U/L (38-126); Anion Gap 6 mmol/L; Blood Urea Nitrogen 10 mg/dL (9-20); Calcium 9.2 mg/dL (8.4-10.2); Carbon Dioxide 26 mmol/L (22-30); Chloride 107 mmol/L (98-107); Glucose 99 mg/dL (74-99); Magnesium 1.8 mg/dL (1.6-2.3); Non-African American GFR(CKD) 84 (>60 ml/min/1.73 sqM); Potassium 4.2 mmol/L (3.5-5.1); Sodium 139 mmol/L (137-145); Total Bilirubin 0.5 mg/dL (0.2-1.3); Total Protein 6.8 g/dL (6.3-8.2)
[2020-09-19 16:48] LABS: D-Dimer <0.17 mg/L FEU (<0.60); INR 0.9 (<1.2); Partial Thromboplastin Time 22.8 sec (22.0-30.0); Prothrombin Time 9.6 sec (9.0-12.0)
--- NOTE | 2020-09-19 16:50 | XR ---
EXAMINATION TYPE: XR chest 2V DATE OF EXAM: 09/19/2020 COMPARISON: None HISTORY: Syncope TECHNIQUE: Frontal and lateral views of the chest are obtained. FINDINGS: There is no focal air space opacity, pleural effusion, or pneumothorax seen. The cardiac silhouette size is within normal limits. The osseous structures are intact. IMPRESSION: No acute cardiopulmonary process.
--- NOTE | 2020-09-19 16:57 | ED ---
Chest Pain HPI - General Chief Complaint: Chest Pain Stated Complaint: chest pain/left arm numbness Time Seen by Provider: 09/19/20 15:55 Source: patient Mode of arrival: ambulatory Limitations: no limitations - History of Present Illness Initial Comments: Patient is a 44-year-old male who presents the emergency department with reported chest pain. Patient reports that he was sitting on the couch approximately 20 minutes ago when he had sudden onset of left-sided chest pain which went into his left arm. She attempted to get up from the couch when he had a syncopal episode and fell. Possibly hit his head on a side table. Episode was witnessed by the patient's . Patient awoke and continued to have chest pain and therefore was brought into the emergency room for evaluation. He states that he had a similar episode while at work with chest pain and syncope and was taken in the [facility] on . Patient received a cardiac workup and was discharged on Sunday after an echo. States he is supposed to follow-up in the outpatient setting for a stress test. Patient is alert family history of cardiac disease however denies any personal history. He was started on several medications that his discharge however he doesn't know what these were. Patient states his pain is active at this time, graded 8 out of 10. No associated shortness of breath. No ripping or tearing sensation to his back. No associated nausea, vomiting or diaphoresis. Patient tested positive for Covid at [facility] however he denies any symptoms of shortness of breath, fevers or fatigue. No sick contacts with similar symptoms. Other alleviating, precipitating or modifying factors - Related Data Home Medications Medication Instructions Recorded Confirmed Ibuprofen [Motrin Ib] 600 mg PO Q8H PRN 09/19/20 09/19/20 Allergies Allergy/AdvReac Type Severity Reaction Status Date / Time tramadol AdvReac GETS ANGRY Verified 09/19/20 17:53 Review of Systems ROS Statement: Those systems with pertinent positive or pertinent negative responses have been documented in the HPI. ROS Other: All systems not noted in ROS Statement are negative. EKG Findings - EKG Comments: EKG Findings:: EKG demonstrates sinus rhythm with a ventricular rate of 61. WA interval 160. QRS 84. QTC 374. No acute ST segment elevations or depressions Past Medical History Additional Past Medical History / Comment(s): chronic back pain with 2 herniated disks History of Any Multi-Drug Resistant Organisms: None Reported Past Surgical History: Orthopedic Surgery, Tonsillectomy Additional Past Surgical History / Comment(s): Right rotator cuff repair, left knee arthroscopy with ACL repair. Past Psychological History: Bipolar, Depression Smoking Status: Current every day smoker Past Alcohol Use History: Occasional Past Drug Use History: None Reported - Past Family History Father Additional Family Medical History / Comment(s): Patient has had no contact with his father for 15 years. Mother Additional Family Medical History / Comment(s): Mother is alive at age 75 with dementia. Brother(s) Additional Family Medical History / Comment(s): Patient has 3 brothers and one has cirrhosis of the liver due to alcohol abuse. Patient has 1 sister with no major medical problems. Daughter(s) Additional Family Medical History / Comment(s): Patient has 2 sons and 2 daughters with no major medical problems. General Exam Limitations: no limitations Course Vital Signs 09/19/20 09/19/20 09/19/20 15:53 17:57 18:55 Temperature 98.1 F Pulse Rate 71 55 L Pulse Rate [ Pulse Oximetery ] Respiratory 18 18 18 Rate Blood Pressure 157/81 153/88 Blood Pressure [Left Arm] O2 Sat by Pulse 100 100 Oximetry 09/19/20 19:56 Temperature 97.9 F Pulse Rate Pulse Rate [ 58 L Pulse Oximetery ] Respiratory 16 Rate Blood Pressure Blood Pressure 154/95 [Left Arm] O2 Sat by Pulse 100 Oximetry Chest Pain MDM - MDM Upon arrival. He was placed into room 10. There history of physical exam is performed. IV was established. Laboratory studies were conducted. Patient went for chest x-ray. Laboratory studies are reviewed and troponin is negative. CT of the brain was performed as the patient reports syncope with head trauma which demonstrates no acute fracture in the cervical spine. No acute intracranial hemorrhage. Chest x-ray fails to demonstrate any acute cardiopulmonary process. Results are discussed the patient. He is given an aspirin and 4 mg of morphine. He does have some resolution in his pain. I did recommend hospital admission for cardiology evaluation. Patient agreed to this. Spoke with Dr. Benito who agreed to admit the patient. Patient is awaiting a bed on the floor Disposition Clinical Impression: Chest pain, Syncope and collapse, Head injury Disposition: ADMITTED IP TO THIS HOSP Condition: Stable Is patient prescribed a controlled substance at d/c from ED?: No Decision to Admit Reason: Admit from EC Decision Date: 09/19/20 Decision Time: 18:50
--- NOTE | 2020-09-19 17:56 | CT ---
EXAMINATION TYPE: CT brain arbenine wo con DATE OF EXAM: 09/19/2020 COMPARISON: None HISTORY: Syncope. CT DLP: 1966.9 mGycm Automated exposure control for dose reduction was used. TECHNIQUE: CT scan of the head and cervical spine are performed without contrast. FINDINGS: There is no acute intracranial hemorrhage, mass effect, or midline shift identified. The ventricles and sulci are within normal limits in size. The globes are intact. There are mucous rete ntion cysts or polyps in the right maxillary sinus. Cervical spine is visualized in its entirety from C1 through upper thoracic levels and demonstrates s atisfactory alignment without evidence of acute fracture or dislocation. Prevertebral soft tissue ap pears within normal limits. The C1-C2 articulation is unremarkable. There is mild degenerative disc disease in the mid lower cervical spine with mild spondylosis and disc space narrowing. IMPRESSION: 1. There is no acute fracture or dislocation evident in the cervical spine. Mild degenerative disc di sease. 2. No acute intracranial hemorrhage, mass effect, or midline shift is seen. Chronic sinusitis in the right maxillary sinus.3.
[2020-09-19] MEDS ORDERED: NALOXONE 0.4 MG/ML 1 ML VIAL IV PRN (18:51)
[2020-09-19] MEDS ORDERED: NICOTINE 21MG/24HR PATCH TRANSDERM STA (18:56)
[2020-09-19] MEDS ORDERED: ASPIRIN 325 MG TAB PO STA (19:01)
[2020-09-19] MEDS: MORPHINE SULFATE 4 MG/ML SYRINGE IVP PRN (21:42)
[2020-09-20] MEDS: MORPHINE SULFATE 4 MG/ML SYRINGE IVP PRN (02:48)
[2020-09-20 07:56] VITALS: RESP 18; TEMP 97.6
[2020-09-20] MEDS ORDERED: ONDANSETRON 4 MG/2 ML VIAL IVP PRN (08:19)
[2020-09-20] MEDS ORDERED: DOBUTamine DRIP for NUC MED 500 MG in DEXTROSE/WATER 1 250ML.BAG IV PRN (08:24)
[2020-09-20 09:00] VITALS: BP 131/85
[2020-09-20 09:04] VITALS: PULSE 64
[2020-09-20 09:07] LABS: Basophils # (A) 0.07 X 10*3/uL (0.00-0.10); Basophils % (A) 0.7 %; Eosinophils # (A) 0.26 X 10*3/uL (0.04-0.35); Eosinophils % (A) 2.5 %; HCT 39.7 % (39.6-50.0); HGB 13.4 g/dL (13.0-17.0); Lymphocytes # (A) 3.68 X 10*3/uL (0.90-5.00); Lymphocytes % (A) 35.1 %; MCH 32.1 pg (27.0-32.0); MCHC 33.8 g/dL (32.0-37.0); Mean Platelet Volume 9.2 fL (9.5-12.2); Monocytes # (A) 0.56 X 10*3/uL (0.20-1.00); Monocytes % (A) 5.3 %; Neutrophils # (A) 5.87 X 10*3/uL (1.80-7.70); Platelet Count 251 X 10*3/uL (140-440); RBC 4.18 X 10*6/uL (4.40-5.60); RDW 12.5 % (11.5-14.5); WBC 10.48 X 10*3/uL (4.50-10.00)
[2020-09-20 09:20] LABS: African American GFR (CKD) 94.8 (60.0-200.0); Anion Gap 5.5 mmol/L (4.00-12.00); BUN/Creat Ratio 10.91 Ratio (12.00-20.00); Calcium 8.4 mg/dL (8.7-10.3); Carbon Dioxide 27.5 mmol/L (21.6-31.8); Non-African American GFR(CKD) 81.8 (60.0-200.0); Potassium 4.1 mmol/L (3.5-5.5)
--- NOTE | 2020-09-20 09:22 | P.CRDCN ---
History of Present Illness Consult date: 09/20/20 History of present illness: HISTORY OF PRESENT ILLNESS: This is a 44-year-old male with a past medical history significant for asthma and nicotine dependence. We have been asked to see the patient in consultation for chest pain and syncope. Patient examined at the bedside. Patient reports he began having chest pain on while at work. EMS was called and the patient was taken to [facility]. Patient was evaluated by Dr. Rush. Patient had an echocardiogram done which he states was normal to his knowledge. An outpatient stress test was recommended. Patient reports he was having some dizziness and lightheadedness over the weekend. He states on Sunday he was sitting on his couch and he began having chest pain. He states the pain was in the middle of his chest and under his left breast. He reports the pain radiated to his left arm and jaw. He states he stood up from the couch and he then passed out. His was there at the time. He does not know how long he was out for. He denies loss of bowel or bladder. He denies biting his tongue. Patient states she is still having a small amount of chest discomfort this morning. He states it is worse with deep inspiration. He denies any tenderness to palpation. Patient reports he is smoker and smokes approximately one pack per day. Patient states his mom had a history of congestive heart failure. He reports his dad had a history of heart attacks which she thinks were after the age of 60. EKG reveals sinus mechanism with no signs of acute ischemia Chest xray no acute cardiopulmonary process Laboratory data: WBC 10.4. Hemoglobin 13.4. Platelet count 251. D-dimer 0.17. Sodium 139. Potassium 4.2. BUN 10. Creatinine 1.08. Troponin negative 3. Current home cardiac medications include none REVIEW OF SYSTEMS: At the time of my exam: CONSTITUTIONAL: Denies fever or chills. HEENT: Denies blurred vision, vision changes, or eye pain. Denies hemoptysis CARDIOVASCULAR: Reports mild chest pain; worse with deep inspiration. Denies orthopnea. Denies PND. Denies palpitations RESPIRATORY: Denies shortness of breath. GASTROINTESTINAL: Denies abdominal pain. Denies nausea or vomiting. HEMATOLOGIC: Denies bleeding disorders. GENITOURINARY: Denies any blood in urine. SKIN: Denies pruitis. Denies rash. PHYSICAL EXAM: VITAL SIGNS: Reviewed. GENERAL: Well-developed in no acute distress. HEENT: Head is normocephalic. Pupils are equal, round. Sclerae anicteric. Mucous membranes of the mouth are moist. Neck supple. No JVD or thyromegaly LUNGS: Respirations even and unlabored. Lungs with expiratory wheezing in all lung bond. HEART: Regular rate and rhythm. S1 and S2 heard. ABDOMEN: Soft. Nondistended. Nontender. EXTREMITIES: Normal range of motion. No clubbing or cyanosis. Peripheral pulses intact. No lower extremity edema NEUROLOGIC: Awake and alert. Oriented x 3. ASSESSMENT: Syncope Chest pain, troponins negative 3 Asthma Nicotine dependence Obesity BMI 36.7 PLAN: An acute coronary event has been ruled out Obtain echocardiogram recently completed at [facility] Check orthostatic blood pressures Patient to undergo dobutamine stress test today Smoking cessation recommended Further recommendations pending patient course Nurse practitioner note has been reviewed by physician. Signing provider agrees with the documented findings, assessment, and plan of care. Past Medical History Additional Past Medical History / Comment(s): chronic back pain with 2 herniated disks History of Any Multi-Drug Resistant Organisms: None Reported Past Surgical History: Orthopedic Surgery, Tonsillectomy Additional Past Surgical History / Comment(s): Right rotator cuff repair, left knee arthroscopy with ACL repair. Past Anesthesia/Blood Transfusion Reactions: No Reported Reaction Past Psychological History: Bipolar, Depression Smoking Status: Current every day smoker Past Alcohol Use History: Occasional Past Drug Use History: None Reported - Past Family History Father Additional Family Medical History / Comment(s): Patient has had no contact with his father for 15 years. Mother Additional Family Medical History / Comment(s): Mother is alive at age 75 with dementia. Brother(s) Additional Family Medical History / Comment(s): Patient has 3 brothers and one has cirrhosis of the liver due to alcohol abuse. Patient has 1 sister with no major medical problems. Daughter(s) Additional Family Medical History / Comment(s): Patient has 2 sons and 2 daughters with no major medical problems. Medications and Allergies Home Medications Medication Instructions Recorded Confirmed Type Ibuprofen [Motrin Ib] 600 mg PO Q8H PRN 09/19/20 09/19/20 History Allergies Allergy/AdvReac Type Severity Reaction Status Date / Time tramadol AdvReac GETS ANGRY Verified 09/19/20 17:53 Physical Exam Vitals: Vital Signs Temp Pulse Pulse Pulse Pulse Pulse Resp 09/20/20 08:58 63 65 54 L 09/20/20 08:00 63 65 54 L 64 18 09/20/20 07:00 97.6 F 64 18 09/20/20 02:00 58 L 16 09/20/20 01:35 98.2 F 60 16 09/19/20 20:00 58 L 16 09/19/20 19:56 97.9 F 58 L 16 09/19/20 18:55 55 L 18 09/19/20 17:57 18 09/19/20 15:53 98.1 F 71 18 BP BP BP BP BP Pulse Ox 09/20/20 08:58 140/86 141/87 131/85 09/20/20 08:00 09/20/20 07:00 127/84 97 09/20/20 02:00 09/20/20 01:35 127/76 98 09/19/20 20:00 09/19/20 19:56 154/95 100 09/19/20 18:55 153/88 100 09/19/20 17:57 09/19/20 15:53 157/81 100 Intake and Output 09/19/20 09/20/20 09/20/20 22:59 06:59 14:59 Other: Voiding Method Toilet Toilet Toilet # Voids 1 3 Weight 116.12 kg Results 09/20/20 05:04 09/19/20 16:19 Cardiac Enzymes 09/19/20 09/19/20 09/19/20 Range/Units 16:19 16:19 19:26 AST 21 (17-59) U/L Troponin I <0.012 <0.012 (0.000-0.034) ng/mL 09/19/20 Range/Units 23:08 AST (17-59) U/L Troponin I <0.012 (0.000-0.034) ng/mL Coagulation 09/19/20 Range/Units 16:19 PT 9.6 (9.0-12.0) sec APTT 22.8 (22.0-30.0) sec CBC 09/19/20 09/20/20 Range/Units 16:19 05:04 WBC 9.2 10.48 H (3.8-10.6) k/uL RBC 4.69 4.18 L (4.30-5.90) m/uL Hgb 15.0 13.4 (13.0-17.5) gm/dL Hct 43.4 39.7 (39.0-53.0) % Plt Count 278 251 (150-450) k/uL Comprehensive Metabolic Panel 09/19/20 Range/Units 16:19 Sodium 139 (137-145) mmol/L Potassium 4.2 (3.5-5.1) mmol/L Chloride 107 (98-107) mmol/L Carbon Dioxide 26 (22-30) mmol/L BUN 10 (9-20) mg/dL Creatinine 1.08 (0.66-1.25) mg/dL Glucose 99 (74-99) mg/dL Calcium 9.2 (8.4-10.2) mg/dL AST 21 (17-59) U/L ALT 18 (4-49) U/L Alkaline Phosphatase 50 (38-126) U/L Total Protein 6.8 (6.3-8.2) g/dL Albumin 4.0 (3.5-5.0) g/dL Current Medications Generic Name Dose Route Start Last Admin Trade Name Freq PRN Reason Stop Dose Admin Dobutamine HCl/Dextrose 500 mg 250 mls @ 34.836 mls/hr 09/20/20 08:24 / IV Solution IV 09/20/20 12:25 .Q7H11M PRN Per Protocol Protocol 10 MCG/KG/MIN Morphine Sulfate 4 mg 09/19/20 19:28 09/20/20 02:48 Morphine Sulfate 4 Mg/Ml Syringe IVP 4 mg Q4HR PRN Administration Pain Naloxone HCl 0.2 mg 09/19/20 18:51 Naloxone 0.4 Mg/Ml 1 Ml Vial IV Q2M PRN Opioid Reversal Ondansetron HCl 4 mg 09/20/20 08:19 09/20/20 08:33 Ondansetron 4 Mg/2 Ml Vial IVP 4 mg Q6HR PRN Administration Nausea And Vomiting Intake and Output 09/19/20 09/20/20 09/20/20 22:59 06:59 14:59 Other: Voiding Method Toilet Toilet Toilet # Voids 1 3 Weight 116.12 kg 09/20/20 05:04 09/19/20 16:19
--- NOTE | 2020-09-20 11:44 | P.STRESS ---
- Stress Test Note Stress Test Results/Findings: Exam Performed: Exam Date: Reason for Exam: Height: 5 ft 10 in Weight: 116.12 kg Protocol: Stage: Duration of Exercise: Resting Heart Rate: Resting Blood Pressure: Maximum Achieved Heart Rate: Maximum Achieved Blood Pressure: 85% PMHR: 100% PMHR: METS: Technologist Comment: Stress Test Results/Findings: This is a 44-year-old gentleman with history of of smoking, COPD, was admitted to the hospital with complaints of shortness of breath. Patient also had asthma. Stress data: Baseline blood pressure is 152/53 with a pulse rate of 64. Baseline EKG showed sinus rhythm with normal AK interval and QRS duration. Blood pressure at rest is 150/53 with pulse rate of 64. A standard dose of dobutamine was initiated 10 mics and titrated to 30 mics achieving a maximal heart rate of 151 with blood pressure 164/ 68. EKGs taken during and after exercise did not reveal any significant changes from the baseline. Patient did not express any chest pain. Echo data: Baseline echo images showed normal wall motion and thickening. Exercise echo images with the dobutamine at low dose and high dose, showed augmentation of wall motion and thickening in all the segments. Final impression: #1. Negative dobutamine stress test #2. Negative dobutamine stress echo.
--- NOTE | 2020-09-20 13:38 | HP ---
HISTORY AND PHYSICAL This is a combined history and physical and discharge summary. CHIEF COMPLAINT: Chest pain, syncope. HISTORY OF PRESENT ILLNESS: This 44-year-old gentleman with a past medical history of multiple medical problems including history of DJD, history of bipolar, depression, history of nicotine dependence, being followed by Dr. Elda Hay and as well as Dr. Bibi Dolan in the outpatient setting is admitted with chest pain. The patient apparently was recently evaluated in [facility]. The pain was in the left-side of the chest pain which was radiating to the left arm and the patient also had an episode of syncope which was witnessed by his . The patient was taken to [facility] and admitted for further evaluation. Initial labs are within normal limits. Cardiology performed a stress test which was reported to be within normal limits. Cardiology cleared the patient for discharge. There was no history of fever, rigors. No history of cough, sputum production, hematochezia, melena. X-rays of the spine, x- rays of the chest and CT scan of the brain is also within normal limits. D- dimer is also negative. EKG showed only low voltage complexes. PAST MEDICAL HISTORY: History of chronic back pain, DJD, history of tonsillectomy, bipolar depression, DJD. MEDICATIONS: Medication prior to admission, home medications are ibuprofen 600 mg q.8 p.r.n. ALLERGIES: ULTRAM. FAMILY HISTORY: No contact with father for 15 years. SOCIAL HISTORY: History of smoking. No history of alcohol. No history of substance abuse. REVIEW OF SYSTEMS: ENT: As mentioned earlier. CARDIOVASCULAR SYSTEM: As mentioned earlier. RESPIRATORY SYSTEM: As mentioned earlier. GI: No nausea. : No dysuria. NERVOUS SYSTEM: No numbness or weakness. ALLERGY/IMMUNOLOGY: As mentioned earlier. HEMATOLOGY: No history of anemia. MUSCULOSKELETAL: As mentioned earlier. CONSTITUTIONAL: As mentioned earlier. PSYCHIATRY: As mentioned earlier. PHYSICAL EXAMINATION: The patient is alert and oriented x3. Pulse 54, blood pressure 140/86, respiration 18, temperature 97.6, pulse ox 97% on room air. HEENT: Conjunctivae normal. Oral mucosa moist. NECK: No jugular venous distention. No thyroid enlargement. No carotid bruit. CARDIOVASCULAR: S1, S2 muffled. No S3, no S4. RESPIRATORY: Breath sounds diminished at the bases. No rhonchi. No crackles. ABDOMEN: Soft, nontender. No mass palpable. LEGS: No edema. No swelling. NERVOUS SYSTEM: Higher function as mentioned earlier. Moves all 4 limbs. No focal motor or sensory deficit. LYMPHATICS: No lymphadenopathy of the neck, axillae or groin. SKIN: No ulcer, rash or bleeding. JOINTS: No active deforming arthropathy. LABS: WBC 10.4, hemoglobin 13.4, sodium 140, potassium 4.1. ASSESSMENT: 1. Chest pain possibly musculoskeletal, negative stress test. 2. History of syncope, possibly vasovagal. 3. History of chronic back pain with herniated discs. 4. History of bipolar. 5. History of depression. 6. History of nicotine dependence. 7. Obesity with body mass index of 36.7. RECOMMENDATIONS AND DISCUSSION: This 44-year-old gentleman who presented will monitor the patient closely. Continue the current medications. Continue symptomatic treatment. Stress test was negative. The patient is feeling better. The basic labs are negative as mentioned earlier. I would recommend the patient to be discharged and follow up closely with Elda Hay as well as Cardiology also. DISCHARGE ADVICE: 1. Medications are Motrin p.r.n. as before. 2. Follow up with Cardiology as recommended. 3. Follow up with Elda Hay and Dr. Bibi Dolan as recommended. MMODL / IJN: [id number] / MTDD
--- NOTE | 2020-09-21 09:16 | ECHOS ---
Stress Test Results/Findings: Exam Performed: Exam Date: Reason for Exam: Height: 5 ft 10 in Weight: 116.12 kg Protocol: Stage: Duration of Exercise: Resting Heart Rate: Resting Blood Pressure: Maximum Achieved Heart Rate: Maximum Achieved Blood Pressure: 85% PMHR: 100% PMHR: METS: Technologist Comment: Stress Test Results/Findings: This is a 44-year-old gentleman with history of of smoking, COPD, was admitted to the hospital with complaints of shortness of breath. Patient also had asthma. Stress data: Baseline blood pressure is 152/53 with a pulse rate of 64. Baseline EKG showed sinus rhythm with normal SC interval and QRS duration. Blood pressure at rest is 150/53 with pulse rate of 64. A standard dose of dobutamine was initiated 10 mics and titrated to 30 mics achieving a maximal heart rate of 151 with blood pressure 164/ 68. EKGs taken during and after exercise did not reveal any significant changes from the baseline. Patient did not express any chest pain. Echo data: Baseline echo images showed normal wall motion and thickening. Exercise echo images with the dobutamine at low dose and high dose, showed augmentation of wall motion and thickening in all the segments. Final impression: #1. Negative dobutamine stress test #2. Negative dobutamine stress echo. THELMAD
== END 2020-09-20 13:01 | disposition home or self-care (01) ==
LOC: EC 15:51 → 6NMEDSUR 19:00
PROVIDERS: ADMIT Internal Medicine; ATTEND Internal Medicine
DX: R07.89 Other chest pain (principal); R55 Syncope and collapse; G89.29 Other chronic pain; M54.9 Dorsalgia, unspecified; F31.30 Bipolar disorder, current episode depressed, mild or moderate severity, unspecified; M51.9 Unspecified thoracic, thoracolumbar and lumbosacral intervertebral disc disorder; M19.90 Unspecified osteoarthritis, unspecified site; F17.210 Nicotine dependence, cigarettes, uncomplicated; R42 Dizziness and giddiness; E66.9 Obesity, unspecified; Z20.822 Contact with and (suspected) exposure to COVID-19; J44.9 Chronic obstructive pulmonary disease, unspecified; Z68.36 Body mass index [BMI] 36.0-36.9, adult; Z88.5 Allergy status to narcotic agent; Z81.8 Family history of other mental and behavioral disorders; Z81.1 Family history of alcohol abuse and dependence; Z82.49 Family history of ischemic heart disease and other diseases of the circulatory system
CPT/HCPCS: 96374; 99285; 36415; 93005; 93351; 85379; 80053; 80048; 84443; 83735; 84484; 85025 ×2; 85610; 85730; 87636; 71046; 72125; 70450; G0378 ×2; S4990; J2270 ×2; J2405; Q9950; 96376

== ENCOUNTER 2020-12-23 18:46 | Emergency (ER) | payer OTHER ==
[2020-12-23] MEDS ORDERED: KETOROLAC 15 MG/ML 1 ML VIAL IVP STA (19:42)
[2020-12-23] MEDS ORDERED: PANTOPRAZOLE 40 MG/10 ML VIAL IVP STA (19:42)
[2020-12-23] MEDS ORDERED: SODIUM CHLORIDE 0.9% 1,000 ML IV STA (19:42)
[2020-12-23] MEDS ORDERED: ONDANSETRON 4 MG/2 ML VIAL IVP STA (19:42)
[2020-12-23 20:15] LABS: Basophils # (A) 0.1 k/uL (0-0.2); Basophils % (A) 1 %; Eosinophils # (A) 0.2 k/uL (0-0.7); Eosinophils % (A) 1 %; HCT 41.9 % (39.0-53.0); HGB 14.4 gm/dL (13.0-17.5); Lymphocytes # (A) 4.2 k/uL (1.0-4.8); Lymphocytes % (A) 33 %; MCH 32.6 pg (25.0-35.0); MCHC 34.4 g/dL (31.0-37.0); MCV 94.6 fL (80.0-100.0); Mean Platelet Volume 7.2; Monocytes # (A) 0.5 k/uL (0-1.0); Monocytes % (A) 4 %; Neutrophils # (A) 7.8 k/uL (1.3-7.7); Neutrophils % (A) 60 %; Platelet Count 299 k/uL (150-450); RBC 4.44 m/uL (4.30-5.90); RDW 12.8 % (11.5-15.5)
[2020-12-23 20:22] VITALS: RESP 18
[2020-12-23 20:23] LABS: ALT 20 U/L (4-49); AST 25 U/L (17-59); African American GFR (CKD) >90 (>60 ml/min/1.73 sqM); Albumin 4.2 g/dL (3.5-5.0); Alkaline Phosphatase 62 U/L (38-126); Amylase 46 U/L (30-110); Anion Gap 8 mmol/L; Blood Urea Nitrogen 10 mg/dL (9-20); Calcium 9.2 mg/dL (8.4-10.2); Carbon Dioxide 25 mmol/L (22-30); Chloride 106 mmol/L (98-107); Glucose 112 mg/dL (74-99); Lipase 180 U/L (23-300); Non-African American GFR(CKD) 83 (>60 ml/min/1.73 sqM); Sodium 139 mmol/L (137-145); Total Bilirubin 0.2 mg/dL (0.2-1.3)
--- NOTE | 2020-12-23 20:26 | ED ---
Abdominal Pain HPI - General Chief Complaint: Abdominal Pain Stated Complaint: Lt Side/Abdominal Pain Time Seen by Provider: 12/23/20 19:31 Source: patient Mode of arrival: ambulatory Limitations: no limitations - History of Present Illness Initial Comments: Patient is a 44-year-old male presenting to the emergency Department with complaints of left lower quadrant pain that started today. He describes the pain as gradually worsening throughout the day. Does admit to some mild nausea but no vomiting, no diarrhea. He is also complaining of a few days of blood mixed in with his stool. He has had this in the past, he had a colonoscopy approximately 15 years ago with no acute findings. He denies any history of abdominal surgeries, denies any chest pain or shortness of breath. Denies any fevers or chills. He denies any dysuria or hematuria. He has no further complaints at this time. Upon arrival to the ER his vitals are stable. - Related Data Home Medications Medication Instructions Recorded Confirmed Ibuprofen [Motrin Ib] 600 mg PO Q8H PRN 09/19/20 09/19/20 Allergies Allergy/AdvReac Type Severity Reaction Status Date / Time tramadol AdvReac GETS ANGRY Verified 12/23/20 19:13 Review of Systems ROS Statement: Those systems with pertinent positive or pertinent negative responses have been documented in the HPI. ROS Other: All systems not noted in ROS Statement are negative. Past Medical History Additional Past Medical History / Comment(s): chronic back pain with 2 herniated disks History of Any Multi-Drug Resistant Organisms: None Reported Past Surgical History: Orthopedic Surgery, Tonsillectomy Additional Past Surgical History / Comment(s): Right rotator cuff repair, left knee arthroscopy with ACL repair. Past Anesthesia/Blood Transfusion Reactions: No Reported Reaction Past Psychological History: Anxiety, Bipolar, Depression, PTSD Smoking Status: Current every day smoker Past Alcohol Use History: Rare Past Drug Use History: None Reported - Past Family History Father Additional Family Medical History / Comment(s): Patient has had no contact with his father for 15 years. Mother Additional Family Medical History / Comment(s): Mother is alive at age 75 with dementia. Brother(s) Additional Family Medical History / Comment(s): Patient has 3 brothers and one has cirrhosis of the liver due to alcohol abuse. Patient has 1 sister with no major medical problems. Daughter(s) Additional Family Medical History / Comment(s): Patient has 2 sons and 2 daughters with no major medical problems. General Exam - General Exam Comments Initial Comments: GENERAL: Patient is well-developed and well-nourished. Patient is nontoxic and in no acute distress. HEAD: Atraumatic, normocephalic. EYES: Pupils equal round and reactive to light, extraocular movements intact, sclera anicteric, conjunctiva are normal. Eyelids were unremarkable. ENT: Nares patent, oropharynx clear without exudates. Moist mucous membranes. NECK: Normal range of motion, supple without lymphadenopathy or JVD. LUNGS: Unlabored respirations. Breath sounds clear to auscultation bilaterally and equal. No wheezes rales or rhonchi. HEART: Regular rate and rhythm without murmurs, rubs or gallops. ABDOMEN: Soft, tender to palpation left lower quadrant, normoactive bowel sounds. No guarding, no rebound. No masses appreciated. : Deferred MUSCULOSKELETAL: Normal extremities with adequate strength and normal range of motion, no pitting or edema. No clubbing or cyanosis. NEUROLOGICAL: Patient is alert and oriented x 3. Normal speech, normal gait. PSYCH: Normal mood, normal affect. SKIN: Warm, Dry, normal turgor, no rashes or lesions noted. Limitations: no limitations Course Vital Signs 12/23/20 12/23/20 19:08 20:20 Temperature 98.9 F Pulse Rate 89 69 Respiratory 17 18 Rate Blood Pressure 144/90 129/91 O2 Sat by Pulse 97 98 Oximetry Medical Decision Making - Medical Decision Making Patient is a 44-year-old male here with left lower quadrant pain increasing throughout the day. Positive nausea, no vomiting, no fevers. Vitals are stable. Also been having blood in his stool over the past few days. Labs are stable, hemoglobin is normal at 14, rest of the labs are within normal limits. Urinalysis evidence of infection. CT of the abdomen and pelvis shows no acute abnormality. Patient is given fluids and Toradol, and resting comfortably. I discussed with patient that he has no acute abnormalities on computed tomography scan, this could be some mild constipation, correlates with the blood in his stool. I recommended increasing his water intake, travel stool softener. He is agreeable this plan of care. He will follow-up with his doctor. I will give him a few referrals for primary care. He is also requesting a work note for today. He is stable for discharge, return parameters were discussed with him and he verbalized understanding. Case discussed with Janeen. - Lab Data Result diagrams: 12/23/20 20:04 12/23/20 20:04 Lab Results 12/23/20 12/23/20 12/23/20 Range/Units 20:04 20:04 20:04 WBC 13.0 H (3.8-10.6) k/uL RBC 4.44 (4.30-5.90) m/uL Hgb 14.4 (13.0-17.5) gm/dL Hct 41.9 (39.0-53.0) % MCV 94.6 (80.0-100.0) fL MCH 32.6 (25.0-35.0) pg MCHC 34.4 (31.0-37.0) g/dL RDW 12.8 (11.5-15.5) % Plt Count 299 (150-450) k/uL MPV 7.2 Neutrophils % 60 % Lymphocytes % 33 % Monocytes % 4 % Eosinophils % 1 % Basophils % 1 % Neutrophils # 7.8 H (1.3-7.7) k/uL Lymphocytes # 4.2 (1.0-4.8) k/uL Monocytes # 0.5 (0-1.0) k/uL Eosinophils # 0.2 (0-0.7) k/uL Basophils # 0.1 (0-0.2) k/uL Sodium 139 (137-145) mmol/L Potassium 4.0 (3.5-5.1) mmol/L Chloride 106 (98-107) mmol/L Carbon Dioxide 25 (22-30) mmol/L Anion Gap 8 mmol/L BUN 10 (9-20) mg/dL Creatinine 1.09 (0.66-1.25) mg/dL Est GFR (CKD-EPI)AfAm >90 (>60 ml/min/1.73 sqM) Est GFR (CKD-EPI)NonAf 83 (>60 ml/min/1.73 sqM) Glucose 112 H (74-99) mg/dL Plasma Lactic Acid Jay (0.7-2.0) mmol/L Calcium 9.2 (8.4-10.2) mg/dL Total Bilirubin 0.2 (0.2-1.3) mg/dL AST 25 (17-59) U/L ALT 20 (4-49) U/L Alkaline Phosphatase 62 (38-126) U/L Total Protein 7.0 (6.3-8.2) g/dL Albumin 4.2 (3.5-5.0) g/dL Amylase 46 (30-110) U/L Lipase 180 (23-300) U/L Urine Color Yellow Urine Appearance Clear (Clear) Urine pH 5.0 (5.0-8.0) Ur Specific Bob White 1.035 (1.001-1.035) Urine Protein Trace H (Negative) Urine Glucose (UA) Negative (Negative) Urine Ketones Trace H (Negative) Urine Blood Negative (Negative) Urine Nitrite Negative (Negative) Urine Bilirubin Negative (Negative) Urine Urobilinogen 2.0 (<2.0) mg/dL Ur Leukocyte Esterase Negative (Negative) 12/23/20 Range/Units 20:04 WBC (3.8-10.6) k/uL RBC (4.30-5.90) m/uL Hgb (13.0-17.5) gm/dL Hct (39.0-53.0) % MCV (80.0-100.0) fL MCH (25.0-35.0) pg MCHC (31.0-37.0) g/dL RDW (11.5-15.5) % Plt Count (150-450) k/uL MPV Neutrophils % % Lymphocytes % % Monocytes % % Eosinophils % % Basophils % % Neutrophils # (1.3-7.7) k/uL Lymphocytes # (1.0-4.8) k/uL Monocytes # (0-1.0) k/uL Eosinophils # (0-0.7) k/uL Basophils # (0-0.2) k/uL Sodium (137-145) mmol/L Potassium (3.5-5.1) mmol/L Chloride (98-107) mmol/L Carbon Dioxide (22-30) mmol/L Anion Gap mmol/L BUN (9-20) mg/dL Creatinine (0.66-1.25) mg/dL Est GFR (CKD-EPI)AfAm (>60 ml/min/1.73 sqM) Est GFR (CKD-EPI)NonAf (>60 ml/min/1.73 sqM) Glucose (74-99) mg/dL Plasma Lactic Acid Jay 1.0 (0.7-2.0) mmol/L Calcium (8.4-10.2) mg/dL Total Bilirubin (0.2-1.3) mg/dL AST (17-59) U/L ALT (4-49) U/L Alkaline Phosphatase (38-126) U/L Total Protein (6.3-8.2) g/dL Albumin (3.5-5.0) g/dL Amylase (30-110) U/L Lipase (23-300) U/L Urine Color Urine Appearance (Clear) Urine pH (5.0-8.0) Ur Specific Bob White (1.001-1.035) Urine Protein (Negative) Urine Glucose (UA) (Negative) Urine Ketones (Negative) Urine Blood (Negative) Urine Nitrite (Negative) Urine Bilirubin (Negative) Urine Urobilinogen (<2.0) mg/dL Ur Leukocyte Esterase (Negative) Disposition Clinical Impression: Left sided abdominal pain Disposition: HOME SELF-CARE Condition: Stable Instructions (If sedation given, give patient instructions): Abdominal Pain (ED) Additional Instructions: Please return to the Emergency Department if symptoms worsen or any other concerns. Increase your water intake, trial of a stool softener. Follow-up with primary care physician. Is patient prescribed a controlled substance at d/c from ED?: No Referrals: None,Stated [Primary Care Provider] - 1-2 days Salo Donald MD [STAFF PHYSICIAN] - 1-2 days Ingrid James MD [STAFF PHYSICIAN] - 1-2 days Time of Disposition: 21:39
[2020-12-23 20:30] LABS: Appearance,Urine Clear (Clear); Bilirubin,Urine Negative (Negative); Blood,Urine Negative (Negative); Color,Urine Yellow; Glucose,Urine (UA) Negative (Negative); Ketones,Urine Trace (Negative); Leukocyte Esterase,Urine Negative (Negative); Nitrite,Urine Negative (Negative); Protein,Urine Trace (Negative); Specific Gravity,Urine 1.035 (1.001-1.035)
--- NOTE | 2020-12-23 21:22 | CT ---
EXAMINATION TYPE: CT abdomen pelvis w con DATE OF EXAM: 12/23/2020 COMPARISON: None available. HISTORY: Left lower quadrant pain. CT DLP: 1804.1 mGycm Automated exposure control for dose reduction was used. TECHNIQUE: Helical acquisition of images was performed from the lung bases through the pelvis. CONTRAST: Performed without Oral Contrast and with IV Contrast, patient injected with 100 mL of Isovue 300. FINDINGS: LUNG BASES: No significant abnormality is appreciated. LIVER/GB: No significant abnormality is appreciated. PANCREAS: No significant abnormality is seen. SPLEEN: No significant abnormality is seen. ADRENALS: No significant abnormality is seen. KIDNEYS: No significant abnormality is seen. FREE AIR: No free air is visualized. RETROPERITONEAL ADENOPATHY: None visualized REPRODUCTIVE ORGANS: No significant abnormality is seen URINARY BLADDER: Decompressed, otherwise unremarkable. PELVIC ADENOPATHY: None visualized. OSSEOUS STRUCTURES: No significant abnormality is seen. BOWEL: No significant abnormality is seen. OTHER: None IMPRESSION: NO SIGNIFICANT ABNORMALITY.
[2020-12-23 21:58] VITALS: BP 114/77; PULSE 64; TEMP 98.8
== END 2020-12-23 21:55 | disposition home or self-care (01) ==
LOC: EC 18:46
DX: R10.32 Left lower quadrant pain (principal); F41.9 Anxiety disorder, unspecified; F32.9 Major depressive disorder, single episode, unspecified; F17.200 Nicotine dependence, unspecified, uncomplicated; F43.10 Post-traumatic stress disorder, unspecified; Z88.6 Allergy status to analgesic agent; Z90.89 Acquired absence of other organs
CPT/HCPCS: 99284; 96374; 96375 ×2; 36415; 80053; 82150; 83605; 83690; 85025; 81003; 74177; J2405; J1885; C9113; Q9967

== ENCOUNTER 2021-02-23 19:49 | Emergency (ER) | payer OTHER ==
[2021-02-23 20:41] VITALS: BP 137/95; PULSE 82; RESP 20; TEMP 98.2
--- NOTE | 2021-02-23 20:59 | XR ---
EXAMINATION TYPE: XR hand complete LT DATE OF EXAM: 02/23/2021 COMPARISON: NONE HISTORY: Pain TECHNIQUE: 3 views FINDINGS: There is nondisplaced fracture of the tuft of the distal phalanx of the little finger left hand. There is no dislocation. The carpals are intact. Carpal bones are intact. IMPRESSION: Acute fracture of the distal phalanx little finger left hand.
[2021-02-23] MEDS ORDERED: BACITRACIN OINT 1 EACH PACKET TOPICAL ONE (22:03)
[2021-02-23] MEDS ORDERED: KETOROLAC 15 MG/ML 1 ML VIAL IM STA (22:03)
[2021-02-23] MEDS ORDERED: ACET/COD 300 MG/30 MG STARTER PACK 6 TAB BTL PO STA (22:03)
[2021-02-23] MEDS ORDERED: CEPHALEXIN 500MG STARTER PACK 4 CAP BTL PO STA (22:04)
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
== END 2021-02-23 23:25 | disposition home or self-care (01) ==
LOC: EC 19:49
DX: S62.637A Displaced fracture of distal phalanx of left little finger, initial encounter for closed fracture (principal); J45.909 Unspecified asthma, uncomplicated; F41.9 Anxiety disorder, unspecified; F31.9 Bipolar disorder, unspecified; F43.12 Post-traumatic stress disorder, chronic; F17.200 Nicotine dependence, unspecified, uncomplicated; Z88.1 Allergy status to other antibiotic agents; Z90.89 Acquired absence of other organs; W23.1XXA Caught, crushed, jammed, or pinched between stationary objects, initial encounter
CPT/HCPCS: 99284; 96372; 11740; 73130; J1885

== ENCOUNTER → 2021-03-07 | Outpatient (CLI) | payer OTHER ==
--- NOTE | 2021-03-07 15:29 | XR ---
Fifth digit left hand HISTORY: Crush injury 1013 4 views of the fifth digit of left hand correlated to prior left hand 02/23/2021 Comminuted tuft fracture of the fifth digit to the left hand is again noted with some displacement of fracture fragments. No evident dislocation. IMPRESSION: Tuft fracture fifth digit left hand is again noted
== END | disposition home or self-care (01) ==
LOC: RADXRMAIN 14:57
PROVIDERS: ATTEND Emergency Medicine
DX: S62.637A Displaced fracture of distal phalanx of left little finger, initial encounter for closed fracture (principal); W23.0XXA Caught, crushed, jammed, or pinched between moving objects, initial encounter

== ENCOUNTER 2021-03-24 19:10 | Emergency (ER) | payer OTHER ==
[2021-03-24 20:21] VITALS: PULSE 83; RESP 18; TEMP 97.4
[2021-03-24] MEDS ORDERED: KETOROLAC 30 MG/ML 1 ML VIAL IM STA (20:48)
[2021-03-24] MEDS ORDERED: ORPHENADRINE 30 MG/ML 2 ML VIAL IM STA (20:48)
--- NOTE | 2021-03-24 20:49 | ED ---
General Adult HPI - General Chief complaint: Extremity Injury, Upper Stated complaint: Left shoulder pain [facility] Time Seen by Provider: 03/24/21 20:28 Source: patient, RN notes reviewed, old records reviewed Mode of arrival: ambulatory Limitations: no limitations - History of Present Illness Initial comments: 45-year-old well-appearing male patient presents to the emergency room with complaints of left shoulder pain. Patient states he felt a sharp shooting pain in his left shoulder when he was trying to lift a 100 pound tote. He states that the pain shoots up into the left side of his neck. He has a history of rotator cuff repair on the right side. He states this pain feels similar. He states pain is 7 out of 10. He denies any other injuries. He is a pack-a-day smoker. Location: left, upper extremity (Shoulder) Radiation: neck (Left trapezius) - Related Data Home Medications Medication Instructions Recorded Confirmed Ibuprofen [Motrin Ib] 600 mg PO Q8H PRN 09/19/20 09/19/20 Previous Rx's Medication Instructions Recorded Cephalexin [Keflex] 500 mg PO BID #10 cap 02/24/21 Ibuprofen [Motrin] 800 mg PO Q6HR #30 tab 03/24/21 Allergies Allergy/AdvReac Type Severity Reaction Status Date / Time tramadol AdvReac GETS ANGRY Verified 03/24/21 20:19 Review of Systems ROS Statement: Those systems with pertinent positive or pertinent negative responses have been documented in the HPI. ROS Other: All systems not noted in ROS Statement are negative. Past Medical History Past Medical History: Asthma Additional Past Medical History / Comment(s): chronic back pain with 2 herniated disks History of Any Multi-Drug Resistant Organisms: None Reported Past Surgical History: Orthopedic Surgery, Tonsillectomy Additional Past Surgical History / Comment(s): Right rotator cuff repair, left knee arthroscopy with ACL repair.eye Past Anesthesia/Blood Transfusion Reactions: No Reported Reaction Past Psychological History: Anxiety, Bipolar, Depression, PTSD Smoking Status: Current every day smoker Past Alcohol Use History: None Reported Past Drug Use History: None Reported - Past Family History Father Additional Family Medical History / Comment(s): Patient has had no contact with his father for 15 years. Mother Additional Family Medical History / Comment(s): Mother is alive at age 75 with dementia. Brother(s) Additional Family Medical History / Comment(s): Patient has 3 brothers and one has cirrhosis of the liver due to alcohol abuse. Patient has 1 sister with no major medical problems. Daughter(s) Additional Family Medical History / Comment(s): Patient has 2 sons and 2 daughters with no major medical problems. General Exam Limitations: no limitations General appearance: alert, in no apparent distress Head exam: Present: atraumatic, normocephalic, normal inspection Eye exam: Present: normal appearance, EOMI. Absent: scleral icterus, conjunctival injection, periorbital swelling ENT exam: Present: normal exam, normal oropharynx, mucous membranes moist Neck exam: Present: normal inspection, tenderness (Left trapezius), full ROM. Absent: meningismus, lymphadenopathy, thyromegaly Respiratory exam: Present: normal lung sounds bilaterally. Absent: respiratory distress, wheezes, rales, rhonchi, stridor Cardiovascular Exam: Present: regular rate, normal rhythm, normal heart sounds. Absent: systolic murmur, diastolic murmur, rubs, gallop, clicks Left Shoulder Exam: Present: normal inspection, tenderness, tenderness over AC joint, other (Pain with abduction and forward flexion). Absent: full ROM, swelling, abrasion, laceration, ecchymosis, deformity, crepitus, dislocation, erythema Upper Arm exam: Present: normal inspection Vascular: Present: normal capillary refill. Absent: vascular compromise Neurological exam: Present: alert, oriented X3 Psychiatric exam: Present: normal affect, normal mood Skin exam: Present: warm, dry, intact, normal color. Absent: rash Course Vital Signs 03/24/21 20:19 Temperature 97.4 F L Pulse Rate 83 Respiratory 18 Rate O2 Sat by Pulse 98 Oximetry Medical Decision Making - Medical Decision Making X-ray of the left shoulder shows no acute fracture or dislocation. The AC and glenohumeral joint spaces are within normal limits. There is no swelling or warmth or redness to the shoulder joint. He does have some tenderness over the AC joint but no tenderness along the scapula or humeral head. Patient was placed in a sling directed to follow up with orthopedics. Instructed to take Motrin every 6-8 hours for pain. Case discussed with Dr. Maier. Disposition Clinical Impression: Shoulder injury Disposition: HOME SELF-CARE Condition: Good Instructions (If sedation given, give patient instructions): Shoulder Pain (ED) Additional Instructions: Wear sling and take Motrin 600 mg every 8 hours for the next 3 days. Follow-up with orthopedics in 1 week. Return to the emergency room with any new or worsening symptoms. Prescriptions: Ibuprofen [Motrin] 800 mg PO Q6HR #30 tab Is patient prescribed a controlled substance at d/c from ED?: No If Rx opioid, was Start Talking consent form obtained?: No Referrals: None,Stated [Primary Care Provider] - 1-2 days Juju Santoro DO [Doctor of Osteopathic Medicine] - 1-2 days Time of Disposition: 22:38
--- NOTE | 2021-03-24 22:42 | XR ---
EXAMINATION TYPE: XR shoulder complete LT DATE OF EXAM: 03/24/2021 CLINICAL HISTORY: Pain after reaching injury. TECHNIQUE: Three views of the left shoulder are obtained. COMPARISON: None. FINDINGS: There is no acute fracture/dislocation evident in the left shoulder. The acromioclavicula r and glenohumeral joint spaces appear within normal limits. The visualized ribs are intact and unre markable. IMPRESSION: There is no acute fracture or dislocation in the left shoulder.
== END 2021-03-24 22:50 | disposition home or self-care (01) ==
LOC: EC 19:10
DX: S49.92XA Unspecified injury of left shoulder and upper arm, initial encounter (principal); J45.909 Unspecified asthma, uncomplicated; F17.200 Nicotine dependence, unspecified, uncomplicated; Z79.1 Long term (current) use of non-steroidal anti-inflammatories (NSAID); X50.0XXA Overexertion from strenuous movement or load, initial encounter; X50.1XXA Overexertion from prolonged static or awkward postures, initial encounter
CPT/HCPCS: 73030; 99283; 96372 ×2; J2360; J1885

== ENCOUNTER → 2021-05-23 | Outpatient (CLI) | payer OTHER ==
[2021-05-23 12:01] LABS: Basophils # (A) 0.1 k/uL (0-0.2); Basophils % (A) 1 %; Eosinophils # (A) 0.4 k/uL (0-0.7); Eosinophils % (A) 3 %; HCT 47.1 % (39.0-53.0); HGB 15.7 gm/dL (13.0-17.5); Lymphocytes # (A) 4.5 k/uL (1.0-4.8); Lymphocytes % (A) 41 %; MCH 32.3 pg (25.0-35.0); MCHC 33.2 g/dL (31.0-37.0); MCV 97.1 fL (80.0-100.0); Mean Platelet Volume 6.6; Monocytes # (A) 0.6 k/uL (0-1.0); Monocytes % (A) 5 %; Neutrophils # (A) 5.4 k/uL (1.3-7.7); Neutrophils % (A) 48 %; Platelet Count 318 k/uL (150-450); RBC 4.85 m/uL (4.30-5.90); RDW 12.4 % (11.5-15.5); WBC 11.2 k/uL (3.8-10.6)
[2021-05-23 12:07] LABS: Potassium 4.4 mmol/L (3.5-5.1)
== END | disposition home or self-care (01) ==
LOC: LABPAT 10:49
PROVIDERS: ATTEND Orthopaedic Surgery
DX: Z01.812 Encounter for preprocedural laboratory examination (principal); M75.42 Impingement syndrome of left shoulder
CPT/HCPCS: 36415; 80051; 85025

== ENCOUNTER 2021-05-27 07:50 | Day surgery (SDC) | payer OTHER ==
[2021-05-20 15:38] VITALS: BMI 37.3
--- NOTE | 2021-05-26 11:16 | HP ---
HISTORY AND PHYSICAL CHIEF COMPLAINT: Left shoulder pain. 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 He notes he was lifting a 200- pound bin and felt a pop in his shoulder. He has had pain ever since. He is having a difficult time raising his arm over his head. He is having night symptoms. He denies previous problems. Currently he is off work. He has been taking anti-inflammatories, with only partial relief. PAST MEDICAL HISTORY: Otherwise negative. PAST SURGICAL HISTORY: Significant for right rotator cuff repair. CURRENT MEDICATIONS: None. ALLERGIES: TRAMADOL. FAMILY HISTORY: Negative. SOCIAL HISTORY: Significant for one pack per day tobacco use. REVIEW OF SYSTEMS: Sixteen-point review of systems otherwise reviewed and is noncontributory. PHYSICAL EXAMINATION: On examination, the patient is approximately 5 feet 10 inches, 260 pounds of endomorphic habitus. HEENT exam is nonfocal. Neck is supple. He is tender about the left shoulder anterior subacromial space. He has mild subacromial crepitus. Active range of motion: Forward elevation 90 degrees, external rotation with arm to side 45 degrees, internal rotation to L3. Passively I am able to forward-elevate him to 150 degrees. Motor strength 5 minus over 5 for abduction and external rotation. Impingement test, Neer test and Speed test are positive. His distal neurovascular exam appears intact in the left upper extremity. MRI report left shoulder 04/20/2021 shows evidence of increased signal along the supraspinatus along with the superior labrum. IMPRESSION: 1. Left rotator cuff strain versus partial-thickness tear. 2. Superior labral tear, left shoulder. RECOMMENDATIONS: I talked to the patient at length regarding his condition along with treatment options. At this point he is quite symptomatic and limited because of pain after this acute injury. After thorough discussion, he opts to proceed with surgery. We will plan to proceed with arthroscopic evaluation with possible subacromial decompression, rotator cuff debridement versus repair, and possible superior labral debridement versus repair. We will likely perform that as an outpatient procedure. Risks and benefits were discussed at length in layman's terms. MMODL / IJN: [id number] /
[~2021-05-27 07:50] MED LIST: DEXAMETHASONE SOD PHOSPHATE 4 MG/ML 1 ML VIAL IV ONE; HYDROmorphone 0.5 MG/0.5 ML SYRINGE IVP PRN; LACTATED RINGERS 1,000 ML IV SCH; LIDOCAINE 1% (10MG/ML) FOR IV START INTRADERMA PRN; MIDAZOLAM 2 MG/2 ML VIAL IV PRN; ONDANSETRON 4 MG/2 ML VIAL IVP ONE
[2021-05-27] MEDS ORDERED: DEXAMETHASONE SOD PHOSPHATE 4 MG/ML 1 ML VIAL ONE (09:34)
[2021-05-27] MEDS ORDERED: SUCCINYLCHOLINE CHLORIDE VIAL 200 MG/10 ML VIAL IV ONE (09:34)
[2021-05-27] MEDS ORDERED: LIDOCAINE 1% INJ 10MG/ML (20 ML MDV) ONE (09:34)
[2021-05-27] MEDS ORDERED: ePHEDrine 50 MG/ML 1 ML AMP ONE (09:34)
[2021-05-27] MEDS ORDERED: HYDROmorphone (PF) 1 MG/ML ONE (09:34)
[2021-05-27] MEDS ORDERED: GLYCOPYRROLATE 0.2 MG/ML 2 ML VIAL ONE (09:34)
[2021-05-27] MEDS ORDERED: NEOSTIGMINE 1 MG/ML 10 ML VIAL ONE (09:34)
[2021-05-27] MEDS ORDERED: PROPOFOL 10 MG/ML 20 ML VIAL IV ONE (09:34)
[2021-05-27] MEDS ORDERED: PHENYLEPHRINE-0.9% NACL SYG 1,000 MCG/10 ML SYRINGE ONE (09:34)
[2021-05-27] MEDS ORDERED: ROPIVACAINE 5 MG/ML 30 ML VIAL ONE (09:34)
[2021-05-27] MEDS ORDERED: ROCURONIUM 10 MG/ML (5 ML VIAL) IV ONE (09:34)
[2021-05-27] MEDS ORDERED: EPINEPHrine (PF) 1 ML in SODIUM CHLORIDE 0.9% IRRIGATIO 3,000 ML IRRIGATION ONE ×8 (09:39)
--- NOTE | 2021-05-27 10:46 | P.OP ---
Date of Procedure: 05/27/21 Preoperative Diagnosis: Left rotator cuff strain/posterior superior labral tear Postoperative Diagnosis: Same in addition to a partial thickness tear anterior aspect articular surface of the supraspinatus Procedure(s) Performed: Left shoulder arthroscopic superior labral debridement, rotator cuff debridement, subacromial decompression Anesthesia: [facility], [facility] Surgeon: Delgado Jordan [employer] Vendor #1: Donny Cool Estimated Blood Loss (ml): 10 Pathology: none sent Condition: stable Disposition: PACU Indications for Procedure: The patient's a 45-year-old male who presents after an injury at work with persistent/progressive left shoulder pain despite attempted conservative treatment. A discussion of the risks and benefits of operative intervention versus continued conservative measures was made with patient. He opted to proceed with surgery. Operative risks to include infection, neurovascular injury, development of blood clots, possible tendon rerupture, possible postoperative stiffness and need for subsequent procedures was discussed. Informed consent was obtained. Operative Findings: As below Description of Procedure: The patient was brought to the operating room, and after induction of general anesthesia was placed in a beachchair position. A preoperative interscalene block was placed for postoperative analgesia. I examined the left shoulder. There was no gross block to passive motion or gross glenohumeral instability. The left upper extremity was prepped and draped in normal fashion. The bony outlines the acromion, distal clavicle, and coracoid process were outlined with a skin marker. The glenohumeral joint was inflated with 50 mL of saline utilizing a spinal needle from posterior approach. A posterior portal was made through a 5 mm skin incision 1 cm medial and inferior to the posterior lateral border time. A blunt trocar was used to easily into the joint. Diagnostic arthroscopy was performed. An anterior portal was made just lateral to the coracoid process entering the joint above the subscapularis tendon. The subscapularis tendon appeared to be intact. Anterior labrum was intact. The inferior recess was inspected. The intra-articular portion the biceps appeared to be intact. The anterior and central portion of the biceps anchor was intact. There was a flap tear involving the posterior aspect of the anchor along with the posterior labrum. This was debrided back to a stable base with a motorized shaver. The remaining posterior labrum was intact and stable. On inspection the rotator cuff, a partial thickness tear involving the anterior aspect the supraspinatus was noted. This involved approximately 20% of the tendon thickness. The edges were debrided back with a motorized shaver. The remaining rotator cuff appeared to be intact on the articular surface. The arthroscope was placed into the subacromial space. A lateral portal was made 2 centimeters inferior to the anterior lateral border of the acromion. Significant subacrom ial bursitis was noted. This was debrided with motorized shaver. The soft tissue on the undersurface of the acromion was debrided with a motorized shaver and electrocautery clearly defining the anterior medial and lateral borders as well as the distal clavicle. An anterior inferior acromioplasty was performed with a motorized chris starting anterolateral, then extending this posteriorly, then extending this medially. I converted to a flat acromion and this was verified in the posterior and lateral viewing portals. The greater tuberosity was lightly decorticating with a shaver down to a bleeding bony surface. The rotator cuff was inspected and was felt to be intact on the bursal surface. The arthroscope was then removed. The portals were closed with simple 3-0 nylon sutures. A sterile dressing was applied in addition to a sling. The patient was then awoken from general anesthesia and transferred to recovery room in good condition. Blood loss was estimated at 10 mL. No complications were incurred. Sponge and needle counts were correct in the case. Donny HATHAWAY assisted and the major components of the case to include arm positioning along with decompression/debridement.
[2021-05-27 10:49] VITALS: RESP 18; TEMP 97.1
[2021-05-27 12:10] VITALS: BP 117/81; PULSE 85
--- NOTE | 2021-05-28 16:17 | P.ANPRN ---
Procedure Note - Anesthesia - Nerve Block Performed Left Interscalene Single Time Out Performed: Yes Date of Procedure: 05/27/21 Procedure Start Time: : Procedure Stop Time: :33 Location of Patient: PreOp Indication: Acute Post-Operative Pain, Requested by Surgeon Sedation Type: Sedate with meaningful contact maintained Preparation: Sterile Prep Position: Supine Needle Types: Pajunk Needle Gauge: 21 Ultrasound used to visualize needle placement: Yes Ultrasound used to observe medication spread: Yes Blood Aspirated: No Pain Paresthesia on Injection Noted: No Resistance on Injection: Normal Image Stored and Saved: Yes Events: Uneventful and Well Tolerated (ropi .5% 20cc plus dexamethasone 4mg)
== END 2021-05-27 12:18 | disposition home or self-care (01) ==
LOC: OR 07:50
PROVIDERS: ATTEND Orthopaedic Surgery
DX: S43.432A Superior glenoid labrum lesion of left shoulder, initial encounter (principal)
CPT/HCPCS: 29822; 64415; 76942; 29826; J2250; J0330; J1100; J2710; J0690; J2405; J0171; J2001; J1170 ×2; J2795; J2370; J2704

== ENCOUNTER → 2022-10-25 | Outpatient (CLI) | payer OTHER ==
--- NOTE | 2022-10-25 14:46 | P.SLEEP ---
History of Present Illness DATE: 10/25/2022 CONSULTATION/NEW PATIENT EVALUATION HISTORY OF PRESENT ILLNESS/SLEEP-WAKE EVALUATION: 46 year old gentleman had been evaluated in the sleep center for possible obstructive sleep apnea hypopnea syndrome. SLEEP SCHEDULE: Usually sleep schedule patient had history of obstructive sleep apnea hypopnea syndrome diagnosed in another institution about 12 years ago, she was started on treatment with CPAP but for different reasons His CPAPwas lost 9 years ago. FALLING ASLEEP: Sometimes patient has problems with falling asleep, highest TV set and bedroom. DURING SLEEP:Patient snores and has positive history of witnessed episodes of stop breathing during the sleep. Patient wakes up from sleep 5 times without n octuria. No history of hypnogogical hallucinations, sleep paralysis, or cataplexy.Positive history of restless leg symptoms, panic attacks, heartburn. DURING THE DAY/WAKE STATE: Patient wake up tired, has problems with paying attention, difficulties with concentration, episodes of anxiety, depression, irritability, sexual dysfunction. [place] sleepiness scale is 6. Patient may take 1 nap around 4 PM. PAST MEDICAL HISTORY: Hypertension, acid reflux, hyperlipidemia, sinuses problems. PAST SURGICAL HISTORY: Left shoulder surgery. MEDICATIONS: [place]. SOCIAL HISTORY: Positive for smoking for about 28 years up to 2 packs a day, presently trying to stop smoking down to half pack a day, alcohol consumption none. FAMILY HISTORY: Hypertension, heart problems, sleep apnea, cancer, diabetes. REVIEW OF SYSTEMS: Snoring, multiple awakenings from sleep. No fevers. No double vision. No recent chest pain. No shortness of breath. No abdominal pain. No bleeding episodes. No blood in urine. No seizure episodes. PHYSICAL EXAMINATION: GENERAL: A pleasant patient without any distress. VITAL SIGNS: BP 151/99 , HR 85 , RR 18 , weight 312 pounds, height 5 foot 8.5 inches, body mass index 46.7 . HEENT: PERRLA, EOMI. Evaluation of oropharynx showed tongue protrudes midline, low position of soft palate Mallampati 4. NECK: Supple. No JVD. Thyroid is not palpable. 19-3/4 inches in circumference. LUNGS: Clear to percussion and to auscultation. Good air exchange. No wheezing or rhonchi. HEART: S1, S2 regular. No murmurs, gallops or rubs. ABDOMEN: Soft and nontender. Bowel sounds are present. No organomegaly appreciated. Obese. EXTREMITIES: No clubbing or cyanosis. MELTER HELPER: Awake, alert, and oriented x3. Cranial nerves 2 to 7 intact. There is no fasciculation or atrophy noted. No focal deficits observed. ASSESSMENT: 1. Snoring, witnessed episodes of stop breathing during the sleep, multiple awakenings from sleep, extremely low position of soft palate Mallampati 4, ext remely wide neck, history of obstructive sleep apnea in the past. Obstructive sleep apnea hypopnea syndrome. 2. Obesity, BMI 46.7. 3. Hypertension . 4. Acid reflux. 5 history of hyperlipidemia. 6 . Status post left shoulder surgical treatment. 7. restless leg syndrome. 8. []. 9 . []. 10. []. 11. []. 12. []. 13. []. PLAN: 1. Polysomnography for evaluation of patient's breathing during sleep and to check for periodic limb movements. 2. CPAP/BiPAP titration if sleep study confirms obstructive sleep apnea- hypopnea syndrome. 3. Preferable position during sleep on the side. 4. No driving if patient feels any sleepiness. Patient is aware of civil and criminal liability for unsafe driving. 5. Sleep hygiene with regular sleep time for at least 7.5-8 hours. 6. Watching and losing weight. Thank you very much for referring this patient for consultation. Sincerely, Bean Arauz MD, PhD, FAASM. Diplomat of [place] [employer], Sleep Medicine Board by [place] [employer] [place] [employer] [facility] [place] Past Medical History Past Medical History: Asthma, COPD, Sleep Apnea/CPAP/BIPAP Additional Past Medical History / Comment(s): chronic back pain with 2 herniated disks History of Any Multi-Drug Resistant Organisms: None Reported Past Surgical History: Orthopedic Surgery, Tonsillectomy Additional Past Surgical History / Comment(s): Right rotator cuff repair, left knee arthroscopy with ACL repair. LASER SX BILAT eyeS AND ALSO BILAT CATARACTS REMOVED WITH LENS IMPLANTS Past Anesthesia/Blood Transfusion Reactions: No Reported Reaction Smoking Status: Current every day smoker - Past Family History Father Additional Family Medical History / Comment(s): Patient has had no contact with his father for 15 years. Mother Additional Family Medical History / Comment(s): Mother is alive at age 75 with dementia. Brother(s) Additional Family Medical History / Comment(s): Patient has 3 brothers and one has cirrhosis of the liver due to alcohol abuse. Patient has 1 sister with no major medical problems. Daughter(s) Additional Family Medical History / Comment(s): Patient has 2 sons and 2 daughters with no major medical problems. Medications and Allergies Home Medications Medication Instructions Recorded Confirmed Type Ibuprofen [Motrin Ib] 600 mg PO Q8H PRN 09/19/20 05/27/21 History Cephalexin [Keflex] 500 mg PO BID #10 cap 02/24/21 05/27/21 Rx Ibuprofen [Motrin] 800 mg PO Q6HR #30 tab 03/24/21 05/27/21 Rx HYDROcodone/APAP 7.5-325MG [[place] 1 each PO Q6HR PRN #28 tab 05/27/21 Rx 7.5] Allergies Allergy/AdvReac Type Severity Reaction Status Date / Time No Known Allergies Allergy Verified 05/27/21 08:16 Sleep Note - Sleep Note Sleep Note: Temperature: Pulse Rate: Respiratory Rate: Blood Pressure: SpO2: Height: Weight: BMI: Neck Circumference:
== END ==
LOC: 3 N SLEEP 14:00
PROVIDERS: ATTEND Internal Medicine
DX: G47.33 Obstructive sleep apnea (adult) (pediatric) (principal); E66.9 Obesity, unspecified; I10 Essential (primary) hypertension; K21.9 Gastro-esophageal reflux disease without esophagitis; E78.5 Hyperlipidemia, unspecified; G25.81 Restless legs syndrome; J44.9 Chronic obstructive pulmonary disease, unspecified; G89.29 Other chronic pain; F17.200 Nicotine dependence, unspecified, uncomplicated; Z99.89 Dependence on other enabling machines and devices; Z68.42 Body mass index [BMI] 45.0-49.9, adult; Z98.890 Other specified postprocedural states
CPT/HCPCS: 99211

== ENCOUNTER → 2023-06-26 | Outpatient (CLI) | payer OTHER ==
--- NOTE | 2023-06-27 08:45 | US ---
EXAMINATION TYPE: US kidneys/renal and bladder DATE OF EXAM: 06/26/2023 COMPARISON: NONE CLINICAL INDICATION: Male, 47 years old with history of R31.1 BENIGN ESSENTIAL MICROSCOPIC HEMATURIA; Microscopic hematuria EXAM MEASUREMENTS: Right Kidney: 12.0 x 5.3 x 5.0 cm Left Kidney: 11.5 x 6.0 x 5.3 cm Right Kidney: no evidence of hydronephrosis Left Kidney: no evidence of hydronephrosis Bladder: wnl Bilateral Jets seen: yes There is no evidence for hydronephrosis at this point in time. No nephrolithiasis is seen. No erick s are identified. The urinary bladder is anechoic. Bilateral ureteral jets are seen. IMPRESSION: No obstructive uropathy or renal calculi.
== END | disposition home or self-care (01) ==
LOC: RADUSWWP 14:20
PROVIDERS: ATTEND Urology
DX: R31.1 Benign essential microscopic hematuria (principal)
CPT/HCPCS: 76770

== ENCOUNTER → 2024-01-29 | Outpatient (CLI) | payer OTHER ==
--- NOTE | 2024-01-29 21:01 | NM ---
EXAMINATION TYPE: NM hepatobiliary w EF DATE OF EXAM: 01/29/2024 4:10 PM COMPARISON: None. CLINICAL INDICATION:Male, 48 years old with history of R10.11 RIGHT UPPER QUADRANT PAIN; K82.0; TECHNIQUE: The patient was given 5.02 mCi of Technetium 99m-Mebrofenin as a radiotracer and multiple scintigraphic images were obtained of the abdomen. Gallbladder function was also assessed after the administration ensure drink and additional scintigraphic images were obtained of the abdomen. A regio n of interest was drawn over the gallbladder and a timing activity curve was generated. The gallbladd er ejection fraction was calculated FINDINGS: Normal uptake of radiotracer was identified within the liver with excretion into the hepatic and comm on biliary ducts within 240 sec. There was normal progressive washout of the liver over the course of the study. Radiotracer uptake within the gallbladder at 16 minutes as well as small bowel activity w as identified at 6 minutes. Maximum calculated gallbladder ejection fraction is: 70% at 30 minutes (Normal gallbladder ejection fraction is > 35%) IMPRESSION: 1. Normal hepatobiliary scan 2. Normal ejection fraction. [facility], , 01/29/2024 8:58 PM
== END | disposition home or self-care (01) ==
LOC: RADNMMAIN 12:55
PROVIDERS: ATTEND Family Medicine
DX: K82.0 Obstruction of gallbladder (principal); R10.11 Right upper quadrant pain; R10.9 Unspecified abdominal pain
CPT/HCPCS: 78226